=== PATIENT | female | born 1965 | race Caucasian/White ===

== ENCOUNTER 2018-01-22 18:22 | Inpatient (IN) | payer BC ==
[2018-01-22] MEDS ORDERED: IPRATROPIUM/ALBUTEROL 0.5-2.5 MG/3 ML AMPUL NEB ONE ×2 (18:44→19:23)
[2018-01-22] MEDS ORDERED: ALBUTEROL SULFATE 0.083% NEB 2.5 MG/3 ML AMPUL NEB ONE (18:44)
--- NOTE | 2018-01-22 18:44 | ER Document Report ---
ED Medical Screen (RME) - General TRAVEL OUTSIDE OF THE [place] IN LAST 30 DAYS: No - General Chief Complaint: Breathing Difficulty Stated Complaint: DIFFICULTY BREATHING Time Seen by Provider: 01/22/18 18:38 Notes: 52-year-old female with asthma and COPD who presents to the emergency department today with complaints of a 4-5 day history of shortness of breath. Patient was seen at [facility] for this last night and was given 4 breathing treatments and sent home with 60 mg of prednisone for 5 days. Patient states she was not given antibiotics and did not have a chest x- ray performed. Patient was also seen today at [facility] urgent care where she had a chest x-ray performed that the patient states showed "mucus buildup in her lungs". Patient has an inhaler at home which she states she has used with no relief. Patient states the cough is nonproductive. Patient states she has also had sneezing and subjective fevers. Patient denies ever having to be intubated in the past for her breathing. I have greeted and performed a rapid initial assessment of this patient. A comprehensive ED assessment and evaluation of the patient, analysis of test results, and completion of the medical decision making process will be conducted by additional ED providers. Review of systems: Constitutional: Fevers. EENT: No symptoms reported Cardiovascular: No symptoms reported Respiratory: Shortness of breath. Cough. Gastrointestinal: No symptoms reported Genitourinary: No symptoms reported Musculoskeletal: No symptoms reported Skin: No symptoms reported Hematologic/Lymphatic: No symptoms reported Neurological/Psychological: No symptoms reported Yes All other systems reviewed and negative PHYSICAL EXAM GENERAL: Alert. Appears short of breath, anxious, tremulous, and uncomfortable. HEAD: Normocephalic, atraumatic. EYES: Pupils equal, round, and reactive to light. Extraocular movements intact. ENT: Oral mucosa moist, tongue midline. NECK: Full range of motion. Supple. Trachea midline. LUNGS: Mild respiratory distress. Expiratory squeaking. Expiratory wheezing bilaterally. Speaking in 6-7 word sentences. EXTREMITIES: Moves all 4 extremities spontaneously. NEUROLOGICAL: Alert and oriented x3. Normal speech. PSYCH: Anxious SKIN: Warm, dry, normal turgor. No rashes or lesions noted. (GADIEL REN) - Related Data Allergies/Adverse Reactions: tetracycline [Tetracycline] Allergy (Severe, Verified 04/02/13 17:14) Anaphylaxis acetaminophen [From Darvocet-N 100] Adverse Reaction (Severe, Verified 04/02/13 17:14) Severe Vomiting propoxyphene napsylate [From Darvocet-N 100] Adverse Reaction (Severe, Verified 04/02/13 17:14) Severe Vomiting Past Medical History - Past Medical History Cardiac Medical History: Reports: Hx Hypertension Pulmonary Medical History: Reports: Hx Asthma, Hx Bronchitis, Hx COPD Denies: Hx Tuberculosis Renal/ Medical History: Denies: Hx Peritoneal Dialysis Psychiatric Medical History: Denies: Hx Depression Past Surgical History: Reports: Hx Cholecystectomy, Hx Hysterectomy - Immunizations Hx Diphtheria, Pertussis, Tetanus Vaccination: Yes - Vital signs Vitals: Temp Pulse Resp BP Pulse Ox 97.9 F 113 H 22 H 153/89 H 92 01/22/18 18:26 01/22/18 18:26 01/22/18 18:26 01/22/18 18:26 01/22/18 18:26 - Vital Signs Vital signs: Temp Pulse Resp BP Pulse Ox 97.9 F 113 H 22 H 153/89 H 92 01/22/18 18:26 01/22/18 18:26 01/22/18 18:26 01/22/18 18:26 01/22/18 18:26 Doctor's Discharge - Discharge Referrals: ANDREW CANALES MD [Primary Care Provider] - Follow up as needed Scribe Documentation - Scribe Written by Scribe:: Madeline Baires, 01/22/2018 [id number] acting as scribe for :: Terri
--- NOTE | 2018-01-22 18:52 | ER Document Report ---
ED General - General Chief Complaint: Breathing Difficulty Stated Complaint: DIFFICULTY BREATHING Time Seen by Provider: 01/22/18 18:38 Notes: Patient is a 52-year-old female with COPD that presents to the emergency department for chief complaint of shortness of breath and wheezing. Patient reports that she has been having increased shortness of breath and difficulty breathing, and dyspnea on exertion since this past Tuesday, with cough associated with it, occasional production of, yellow in color. She has been using her home breathing treatments, without much improvement of her symptoms so she decided come to the emergency department. She does not wear home oxygen. She denies having associated chest pain, fevers, chills, night sweats, nausea, vomiting or abdominal pain. Past Medical History: COPD Past Surgical History: Appendectomy, hysterectomy, cholecystectomy Social History: Admits to smoking cigarettes, denies alcohol or drug use Family History: Reviewed and noncontributory for presenting illness Allergies: Reviewed, see documented allergy list. REVIEW OF SYSTEMS: Other than noted above, the 12 point review of systems was reviewed with the patient and were negative, all pertinent findings are included in the HPI. PHYSICAL EXAMINATION: Vital signs reviewed, nursing noted reviewed. GENERAL: Patient appears older than stated age, in mild respiratory distress HEAD: Atraumatic, normocephalic. EYES: Eyes appear normal, extraocular movements intact, sclera anicteric, conjunctiva are normal. ENT: nares patent, oropharynx clear without exudates. Moist mucous membranes. NECK: Normal range of motion, supple without lymphadenopathy LUNGS: Mild increased work of breathing, and a diffuse expiratory wheezing and rhonchi noted throughout all lung guerrero HEART: Heart rate tachycardic, regular rhythm ABDOMEN: Soft, nontender, normoactive bowel sounds. No rebound, guarding, or rigidity. No masses appreciated. EXTREMITIES: Nontender, good range of motion, no pitting or edema. NEUROLOGICAL: No focal neurological deficits. Moves all extremities spontaneously Motor and sensory grossly intact on exam. PSYCH: Normal mood, normal affect. SKIN: Warm, Dry, normal turgor, no rashes or lesions noted on exposed skin TRAVEL OUTSIDE OF THE [place] IN LAST 30 DAYS: No - Related Data Allergies/Adverse Reactions: tetracycline [Tetracycline] Allergy (Severe, Verified 04/02/13 17:14) Anaphylaxis acetaminophen [From Darvocet-N 100] Adverse Reaction (Severe, Verified 04/02/13 17:14) Severe Vomiting propoxyphene napsylate [From Darvocet-N 100] Adverse Reaction (Severe, Verified 04/02/13 17:14) Severe Vomiting Past Medical History - Social History Smoking Status: Current Every Day Smoker Family History: Reviewed & Not Pertinent Patient has suicidal ideation: No Patient has homicidal ideation: No - Past Medical History Cardiac Medical History: Reports: Hx Hypertension Pulmonary Medical History: Reports: Hx Asthma, Hx Bronchitis, Hx COPD Denies: Hx Tuberculosis Renal/ Medical History: Denies: Hx Peritoneal Dialysis Psychiatric Medical History: Denies: Hx Depression Past Surgical History: Reports: Hx Cholecystectomy, Hx Hysterectomy - Immunizations Hx Diphtheria, Pertussis, Tetanus Vaccination: Yes Hx Pneumococcal Vaccination: 02/25/13 Physical Exam - Vital signs Vitals: Temp Pulse Resp BP Pulse Ox 97.9 F 113 H 22 H 153/89 H 92 01/22/18 18:26 01/22/18 18:26 01/22/18 18:26 01/22/18 18:26 01/22/18 18:26 Course - Re-evaluation Re-evalutation: Patient seen and examined vital signs reviewed. Laboratory data and imaging were ordered as appropriate for the patient's presenting symptoms and complaint, with consideration of any critical or life threatening conditions that may be associated with their obtained history and exam as noted above. Patient was treated with DuoNeb breathing treatments, and IV Solu-Medrol, she is also given a dose of IV magnesium Results were reviewed when available and demonstrated leukocytosis, however chest x-ray was negative for evidence of pneumonia, blood work was otherwise unremarkable The patient was re-evaluated and was improved, stated she was feeling much better from a breathing standpoint, however after the patient was removed from supplemental oxygen, her pulse ox dropped to 84% on room air, the patient is on home oxygen, I feel that the patient would benefit from inpatient treatment, for acute exacerbation of COPD. Evaluation was most consistent with acute COPD exacerbation Results were discussed with the patient at this point after careful consideration I feel that that patient should be admitted to the hospital. This was discussed with the patient that it is in the best interest for their care to be admitted for further evaluation and management. Patient agreed with this plan of care. A call was placed to the admitted physician, Dr. Jennings who graciously accepted the patient onto their service. *Note is created using voice recognition software and may contain spelling, syntax or grammatical errors. 01/22/18 22:28 - Vital Signs Vital signs: Temp Pulse Resp BP Pulse Ox 97.9 F 113 H 22 H 153/89 H 92 01/22/18 18:26 01/22/18 18:26 01/22/18 18:26 01/22/18 18:26 01/22/18 18:26 - Laboratory Result Diagrams: 01/22/18 19:22 01/22/18 19:22 Laboratory results interpreted by me: 01/22/18 01/22/18 01/22/18 19:22 19:22 19:22 WBC 16.7 H RDW 14.8 H Seg Neutrophils % 78.1 H Absolute Neutrophils 13.0 H AST 52 H Urine Blood MODERATE H - EKG Interpretation by Me Additional EKG results interpreted by me: EKG demonstrates sinus tachycardia with a ventricular rate of 110 bpm, normal axis, QTC 433 ms, poor R wave progression, no evidence of acute ischemia on this EKG, this is compared with prior EKG from 02/23/2013, without significant change. At that time the patient did have borderline right axis deviation, as she does on today's EKG. Critical Care Note - Critical Care Note Total time excluding time spent on procedures (mins): 40 Comments: Critical care time 40 minutes exclusive from separate billable procedures for a patient requiring complex medical decision making, and high potential for clinical deterioration. In a patient with acute on chronic respiratory failure , with hypoxia, requiring IV magnesium, and multiple breathing treatments, and admission to the hospital. Time spent obtaining history from patient or surrogate, discussions with consultants, development of treatment plan with patient or surrogate, evaluation of patient's response to treatment, examination of patient, ordering and performing treatments and interventions, ordering and review of laboratory studies, re-evaluation of patient's condition , ordering and review of radiographic studies and review of old charts Discharge - Discharge Clinical Impression: Acute exacerbation of chronic obstructive pulmonary disease (COPD), Hypoxia Condition: Stable Disposition: ADMITTED OBSERVATION Admitting Provider: Hospitalist - Dr. Jennings Unit Admitted: Telemetry
--- NOTE | 2018-01-22 19:11 | RADIOLOGY REPORT (SQ) ---
EXAM DESCRIPTION: CHEST 2 VIEWS COMPLETED DATE/TIME: 01/22/2018 7:04 pm REASON FOR STUDY: cough, COPD, wheeze, SOB COMPARISON: 04/03/2013. EXAM PARAMETERS: NUMBER OF VIEWS: two views TECHNIQUE: Digital Frontal and Lateral radiographic views of the chest acquired. RADIATION DOSE: NA LIMITATIONS: none FINDINGS: LUNGS AND PLEURA: No opacities, masses or pneumothorax. No pleural effusion. MEDIASTINUM AND HILAR STRUCTURES: No masses or contour abnormalities. HEART AND VASCULAR STRUCTURES: Heart normal size. No evidence for failure. BONES: No acute findings. Degenerative changes in the spine. HARDWARE: None in the chest. OTHER: No other significant finding. IMPRESSION: NO ACUTE RADIOGRAPHIC FINDING IN THE CHEST. TECHNICAL DOCUMENTATION: JOB ID: [id number] [employer]- All Rights Reserved Reading location - IP/workstation name: [email or web address]
[2018-01-22] MEDS ORDERED: METHYLPREDNISOLONE INJ 125 MG/2 ML SDV IV ONE (19:23)
[2018-01-22 19:37] LABS: ABSOLUTE BASOPHILS # (AUTO) 0.1 10^3/uL (0.0-0.2); ABSOLUTE EOSINOPHILS # (AUTO) 0.1 10^3/uL (0.0-0.6); ABSOLUTE LYMPHOCYTES (AUTO) 2.3 10^3/uL (0.5-4.7); ABSOLUTE MONOCYTES (AUTO) 1.2 10^3/uL (0.1-1.4); BASOPHILS % (AUTO) 0.5 % (0-2); EOSINOPHILS % (AUTO) 0.7 % (0-6); HEMATOCRIT 40.2 % (36.0-47.0); HEMOGLOBIN 13.3 g/dL (12.0-15.5); LYMPHOCYTES % (AUTO) 13.6 % (13-45); MEAN CORPUSCULAR HGB CONC 33.1 g/dL (32.0-36.0); MEAN CORPUSCULAR VOLUME 85 fl (80-97); MONOCYTES % (AUTO) 7.1 % (3-13); PLATELET COUNT 221 10^3/uL (150-450); RED BLOOD COUNT 4.76 10^6/uL (3.72-5.28); RED CELL DISTRIBUTION WIDTH 14.8 % (11.5-14.0); SEGMENTED NEUTROPHILS % (AUTO) 78.1 % (42-78); TOTAL CELLS COUNTED % (AUTO) 100 %; WHITE BLOOD COUNT 16.7 10^3/uL (4.0-10.5)
[2018-01-22 19:41] LABS: APPEARANCE,URINE CLEAR; BILIRUBIN,URINE NEGATIVE (NEGATIVE); COLOR,URINE STRAW; GLUCOSE, URINE NEGATIVE (NEGATIVE); KETONES,URINE NEGATIVE (NEGATIVE); LEUKOCYTE ESTERASE,URINE NEGATIVE (NEGATIVE); NITRITE,URINE NEGATIVE (NEGATIVE); PROTEIN,URINE NEGATIVE (NEGATIVE); URINE SPECIFIC GRAVITY 1.005; UROBILINOGEN,URINE NEGATIVE mg/dL (<2.0)
[2018-01-22 19:51] LABS: ALANINE AMINOTRANSFERASE 34 U/L (9-52); ALBUMIN 4.2 g/dL (3.5-5.0); ALKALINE PHOSPHATASE 69 U/L (38-126); ANION GAP 11 (5-19); ASPARTATE AMINO TRANSFERASE 52 U/L (14-36); BILIRUBIN,DIRECT 0.3 mg/dL (0.0-0.4); BILIRUBIN,TOTAL 0.7 mg/dL (0.2-1.3); BLOOD UREA NITROGEN 17 mg/dL (7-20); CALCIUM 9.3 mg/dL (8.4-10.2); CARBON DIOXIDE 29 mmol/L (22-30); CHLORIDE 104 mmol/L (98-107); GLUCOSE 97 mg/dL (75-110); POTASSIUM 4.2 mmol/L (3.6-5.0); TOTAL PROTEIN 7.2 g/dL (6.3-8.2)
[2018-01-22 20:03] LABS: NT PRO BNP 103 pg/mL (5-900)
[2018-01-22 20:10] LABS: TROPONIN I < 0.012 ng/mL
[2018-01-22] MEDS ORDERED: MAGNESIUM SULFATE/D5W 1 GM/100 ML RTUPB IV ONE (20:39)
[2018-01-22] MEDS ORDERED: GUAIFENESIN SYRP 200 MG/10 ML UDC PO PRN (22:05)
[2018-01-22] MEDS ORDERED: HYDRALAZINE HCL INJ/PF 20 MG/1 ML SDV IV PRN (22:05)
[2018-01-22] MEDS ORDERED: IPRATROPIUM/ALBUTEROL 0.5-2.5 MG/3 ML AMPUL NEB PRN (22:05)
[2018-01-22] MEDS ORDERED: CHLORPHENIRAMINE MALEATE 4 MG TABLET PO ONE (22:05)
--- NOTE | 2018-01-22 22:45 | EKG REPORT ---
SEVERITY:- ABNORMAL ECG - SINUS TACHYCARDIA BORDERLINE RIGHT AXIS DEVIATION BORDERLINE R WAVE PROGRESSION, ANTERIOR LEADS BORDERLINE T ABNORMALITIES, INFERIOR LEADS : Confirmed by: Claudia Oliva MD 22-Jan-2018 22:45:28
[2018-01-23] MEDS ORDERED: CHLORPHENIRAMINE MALEATE 4 MG TABLET PO ONE (00:45)
[2018-01-23] MEDS: LEVOFLOXACIN 750 MG/D5W RTU 750 MG/150 ML RTUPB IV SCH ×2 (00:56→21:06)
[2018-01-23] MEDS: IPRATROPIUM/ALBUTEROL 0.5-2.5 MG/3 ML AMPUL NEB SCH ×4 (02:16→21:36)
--- NOTE | 2018-01-23 03:23 | PDOC H&P ---
History of Present Illness Admission Date/PCP: 01/22/18 22:11 DIEUDONNE KELSEY III, MD Patient complains of: Shortness of breath History of Present Illness: KAELA SPIVEY is a 52 year old female with a past medical history of hypertension, COPD, chronic bronchitis and tobacco. She presents with 4 days of rhinorrhea, postnasal drip and shortness of breath and a productive cough of yellow sputum. She tried Sudafed, unimproved she sought evaluation at [facility] where she received symptomatic management and prednisone. Without improvement she reports to [facility] emergency room with persistent shortness of breath she is found to have leukocytosis, hypoxia of 88% on room air but an unremarkable chest x-ray. She received symptomatic management, empiric antibiotics and referred to the hospitalist for admission. She denies recent antibiotics Past Medical History Cardiac Medical History: Reports: Hypertension Pulmonary Medical History: Reports: Asthma, Bronchitis, Chronic Obstructive Pulmonary Disease (COPD), Pneumonia Denies: Tuberculosis Psychiatric Medical History: Reports: Depression Past Surgical History Past Surgical History: Reports: Cholecystectomy, Hysterectomy Social History Information Source: Patient, [facility] Records Smoking Status: Current Every Day Smoker Frequency of Alcohol Use: None Hx Recreational Drug Use: No Drugs: None Hx Prescription Drug Abuse: No - Advance Directive Resuscitation Status: Full Code Family History Family History: COPD Parental Family History Reviewed: Yes Children Family History Reviewed: Yes Sibling(s) Family History Reviewed.: Yes Medication/Allergy Home Medications: Albuterol Sulfate [Albuterol Sulfate 2.5mg/3 mL] 3 ml NEB TID 04/02/13 Albuterol Sulfate [Proair HFA] 2 puff IH Q4H PRN 04/02/13 Benzonatate [Tessalon Perles 100 mg Capsule] 100 mg PO QHS PRN 04/02/13 Fluticasone/Salmeterol [Advair 250-50 Diskus 28 dose] 1 puff IH TID 04/02/13 Prednisone 20 mg PO BID 04/02/13 Tiotropium Morris [Spiriva Handihaler 18 mcg/dose (30 Dose)] 1 inh IH DAILY 05/11 Zolpidem Tartrate [Ambien 5 mg Tablet] 5 mg PO QHS 04/02/13 Lisinopril [Prinivil 5 mg Tablet] 2.5 mg PO DAILY #0 tablet 04/04/13 Allergies/Adverse Reactions: tetracycline [Tetracycline] Allergy (Severe, Verified 04/02/13 17:14) Anaphylaxis acetaminophen [From Darvocet-N 100] Adverse Reaction (Severe, Verified 04/02/13 17:14) Severe Vomiting propoxyphene napsylate [From Darvocet-N 100] Adverse Reaction (Severe, Verified 04/02/13 17:14) Severe Vomiting Review of Systems Constitutional: ABSENT: chills, fever(s), headache(s), weight gain, weight loss Eyes: ABSENT: visual disturbances Ears: ABSENT: hearing changes Cardiovascular: ABSENT: chest pain, dyspnea on exertion, edema, orthropnea, palpitations Respiratory: ABSENT: cough, hemoptysis Gastrointestinal: ABSENT: abdominal pain, constipation, diarrhea, hematemesis, hematochezia, nausea, vomiting Genitourinary: ABSENT: dysuria, hematuria Musculoskeletal: ABSENT: joint swelling Integumentary: ABSENT: rash, wounds Neurological: ABSENT: abnormal gait, abnormal speech, confusion, dizziness, focal weakness, syncope Psychiatric: ABSENT: anxiety, depression, homidical ideation, suicidal ideation Endocrine: ABSENT: cold intolerance, heat intolerance, polydipsia, polyuria Hematologic/Lymphatic: ABSENT: easy bleeding, easy bruising Physical Exam Vital Signs: Temp Pulse Resp BP Pulse Ox 98.4 F 80 16 142/78 H 97 01/23/18 02:09 01/23/18 02:16 01/23/18 02:16 01/23/18 02:09 01/23/18 02:16 Intake & Output 01/21/18 01/22/18 01/23/18 11:59 11:59 11:59 Weight 91.9 kg General appearance: PRESENT: cooperative, mild distress. ABSENT: severe distress Head exam: PRESENT: atraumatic, normocephalic Eye exam: PRESENT: conjunctiva pink, EOMI, PERRLA. ABSENT: scleral icterus Ear exam: PRESENT: normal external ear exam Mouth exam: PRESENT: moist, tongue midline Neck exam: ABSENT: carotid bruit, JVD, lymphadenopathy, thyromegaly Respiratory exam: PRESENT: accessory muscle use, crackles, prolonged expiratory phas, symmetrical, tachypnea, wheezes. ABSENT: rales, rhonchi Cardiovascular exam: PRESENT: tachycardia. ABSENT: diastolic murmur, rubs, systolic murmur Pulses: PRESENT: normal dorsalis pedis pul Vascular exam: PRESENT: normal capillary refill Rectal exam: PRESENT: deferred Extremities exam: PRESENT: full ROM. ABSENT: calf tenderness, clubbing, pedal edema Neurological exam: PRESENT: alert, awake, oriented to person, oriented to place , oriented to time, oriented to situation, CN II-XII grossly intact. ABSENT: motor sensory deficit Psychiatric exam: PRESENT: appropriate affect, normal mood. ABSENT: homicidal ideation, suicidal ideation Skin exam: PRESENT: dry, intact, warm. ABSENT: cyanosis, rash Results Impressions: Chest X-Ray 01/22/18 18:44 IMPRESSION: NO ACUTE RADIOGRAPHIC FINDING IN THE CHEST. Assessment & Plan - Diagnosis (1) Acute exacerbation of chronic obstructive pulmonary disease (COPD) Is this a current diagnosis for this admission?: Yes Plan: Supplemental oxygen, albuterol and Atrovent, flutter valve (2) Acute bronchitis Is this a current diagnosis for this admission?: Yes Plan: Empiric antibiotics, prednisone, incentive spirometry. Follow-up CBC and ambulating oxygen saturations. - Time Time Spent: 30 to 50 Minutes
[2018-01-23] MEDS ORDERED: PREDNISONE 20 MG TABLET PO ONE (03:30)
[2018-01-23 04:43] LABS: ABSOLUTE LYMPHOCYTES (AUTO) 0.9 10^3/uL (0.5-4.7); ABSOLUTE MONOCYTES (AUTO) 0.2 10^3/uL (0.1-1.4); ABSOLUTE NEUT (AUTO) 12.1 10^3/uL (1.7-8.2); BASOPHILS % (AUTO) 0.2 % (0-2); HEMATOCRIT 39.3 % (36.0-47.0); HEMOGLOBIN 13.2 g/dL (12.0-15.5); LYMPHOCYTES % (AUTO) 6.6 % (13-45); MEAN CORPUSCULAR HEMOGLOBIN 28.2 pg (27.0-33.4); MEAN CORPUSCULAR HGB CONC 33.6 g/dL (32.0-36.0); MEAN CORPUSCULAR VOLUME 84 fl (80-97); MONOCYTES % (AUTO) 1.6 % (3-13); PLATELET COUNT 200 10^3/uL (150-450); RED BLOOD COUNT 4.69 10^6/uL (3.72-5.28); RED CELL DISTRIBUTION WIDTH 14.8 % (11.5-14.0); SEGMENTED NEUTROPHILS % (AUTO) 91.6 % (42-78); TOTAL CELLS COUNTED % (AUTO) 100 %; WHITE BLOOD COUNT 13.2 10^3/uL (4.0-10.5)
[2018-01-23 04:59] LABS: ANION GAP 12 (5-19); BLOOD UREA NITROGEN 18 mg/dL (7-20); CALCIUM 9.4 mg/dL (8.4-10.2); CARBON DIOXIDE 29 mmol/L (22-30); CHLORIDE 103 mmol/L (98-107); GLUCOSE 161 mg/dL (75-110)
[2018-01-23 05:11] LABS: POTASSIUM 5.2 mmol/L (3.6-5.0)
[2018-01-23] MEDS: HEPARIN SOD (PORCINE) 5,000 UNIT/ML 1 ML SYRINGE SUBCUT SCH ×3 (05:57→21:05)
[2018-01-23] MEDS: FLUTICASONE NASAL SPRAY 50 MCG/SPRY 120 SPRAY/16 GM NASL SCH ×2 (09:29→21:07)
[2018-01-23] MEDS ORDERED: NICOTINE 14 MG/24 HR PATCH.TD24 TD PRN (13:46)
--- NOTE | 2018-01-23 13:49 | PDOC PROGRESS REPORT ---
Subjective Progress Note for:: 01/23/18 Subjective:: He patient is a 52-year-old female with a past medical history of hypertension, COPD, chronic bronchitis, tobacco use with continuous use who was admitted on for acute respiratory failure with hypoxia secondary to a COPD exacerbation. Patient was seen on morning rounds. She is found sitting up in bed high Strange' s on supplemental oxygen at 2 L/min. She was noted to be slightly tachypneic with accessory muscle use; lung sounds were tight with central expiratory wheezing. The patient does admit that she feels better than yesterday, however , has now developed a productive cough. She denies fever, chills, chest pain, palpitations, orthopnea, abdominal pain, nausea vomiting and diarrhea. She has no new questions or concerns. No concerns per nursing. Reason For Visit: COPD EXACERBATION, ACUTE BRONCHITIS Physical Exam Vital Signs: Temp Pulse Resp BP Pulse Ox 97.8 F 100 16 141/75 H 92 01/23/18 09:06 01/23/18 09:06 01/23/18 09:06 01/23/18 09:06 01/23/18 09:06 Intake & Output 01/22/18 01/23/18 01/24/18 06:59 06:59 06:59 Intake Total 350 Balance 350 Weight 91.9 kg General appearance: PRESENT: no acute distress, mild distress, obese, well- developed, well-nourished Head exam: PRESENT: atraumatic, normocephalic Eye exam: PRESENT: conjunctiva pink, EOMI, PERRLA. ABSENT: scleral icterus Ear exam: PRESENT: normal external ear exam Mouth exam: PRESENT: moist, tongue midline Neck exam: ABSENT: carotid bruit, JVD, lymphadenopathy, thyromegaly Respiratory exam: PRESENT: accessory muscle use, decreased breath sounds, tachypnea, wheezes, other. ABSENT: rales, rhonchi Cardiovascular exam: PRESENT: RRR, +S1, +S2. ABSENT: diastolic murmur, rubs, systolic murmur Pulses: PRESENT: normal dorsalis pedis pul Vascular exam: PRESENT: normal capillary refill GI/Abdominal exam: PRESENT: normal bowel sounds, soft. ABSENT: distended, guarding, mass, organolmegaly, rebound, tenderness Rectal exam: PRESENT: deferred Extremities exam: PRESENT: full ROM. ABSENT: calf tenderness, clubbing, pedal edema Neurological exam: PRESENT: alert, awake, oriented to person, oriented to place , oriented to time, oriented to situation, CN II-XII grossly intact. ABSENT: motor sensory deficit Psychiatric exam: PRESENT: appropriate affect, normal mood. ABSENT: homicidal ideation, suicidal ideation Skin exam: PRESENT: dry, intact, warm. ABSENT: cyanosis, rash Results Laboratory Results: 01/23/18 04:00 01/23/18 04:00 01/23/18 01/23/18 04:00 04:00 WBC 13.2 H RBC 4.69 Hgb 13.2 Hct 39.3 MCV 84 MCH 28.2 MCHC 33.6 RDW 14.8 H Plt Count 200 Seg Neutrophils % 91.6 H Lymphocytes % 6.6 L Monocytes % 1.6 L Eosinophils % 0.0 Basophils % 0.2 Absolute Neutrophils 12.1 H Absolute Lymphocytes 0.9 Absolute Monocytes 0.2 Absolute Eosinophils 0.0 Absolute Basophils 0.0 Sodium 144.0 Potassium 5.2 H D Chloride 103 Carbon Dioxide 29 Anion Gap 12 BUN 18 Creatinine 0.68 Est GFR ( Amer) > 60 Est GFR (Non-Af Amer) > 60 Glucose 161 H Calcium 9.4 Impressions: Chest X-Ray 01/22/18 18:44 IMPRESSION: NO ACUTE RADIOGRAPHIC FINDING IN THE CHEST. Assessment & Plan - Diagnosis (1) Acute respiratory failure with hypoxia Is this a current diagnosis for this admission?: Yes Plan: Secondary to COPD exacerbation. The patient was admitted with respiratory distress noted to be hypoxic on room air. She is not home O2 dependent. The patient is admitted to the medical floor on continuous cardiac telemetry. She is provided supplemental oxygen as needed to maintain oxygen saturations. Scheduled and as needed nebulizer treatments. She has empirically been placed on IV Levaquin for coverage of her bronchitis as the patient has a history of chronic bronchitis and reports increased sputum production. Sputum culture is pending. Will adjust antibiotics as cultures result. IV Solu-Medrol. Mucinex twice daily. Incentive spirometer and flutter valve to bedside. (2) Acute exacerbation of chronic obstructive pulmonary disease (COPD) Is this a current diagnosis for this admission?: Yes Plan: As above. (3) Hypertension Is this a current diagnosis for this admission?: Yes Plan: Patient endorses a history of hypertension but is not on home medications. She is placed on a cardiac diet. IV hydralazine as needed for blood pressure control. (4) Tobacco use Is this a current diagnosis for this admission?: Yes Plan: Smoking cessation is encouraged; nicotine replacement therapies are provided. (5) Obesity Qualifiers: Obesity classification: adult class 2 (BMI 35 - 39.9) Is this a current diagnosis for this admission?: Yes Plan: The patient is noted to have a BMI of 37.1; certainly her obesity may be compromising her baseline respiratory status. She is placed on a cardiac diet. Dietary discretion is advised. - Time Time Spent with patient: 15-24 minutes - Inpatient Certification Based on my medical assessment, after consideration of the patient's comorbidities, presenting symptoms, or acuity I expect that the services needed warrant INPATIENT care.: Yes I certify that my determination is in accordance with my understanding of Medicare's requirements for reasonable and necessary INPATIENT services [42 CFR 412.3e].: Yes Medical Necessity: Need for Nebulizer Therapy and Monitoring of Response
[2018-01-23] MEDS: METHYLPREDNISOLONE INJ 40 MG/1 ML SDV IV SCH ×2 (14:57→21:06)
[2018-01-23] MEDS: IBUPROFEN 600 MG TABLET PO PRN (15:46)
[2018-01-23] MEDS ORDERED: PREDNISONE 20 MG TABLET PO SCH (18:00)
[2018-01-23] MEDS: GUAIFENESIN 600 MG TABLET.SA PO SCH (21:06)
[2018-01-23] MEDS: ZOLPIDEM TARTRATE 5 MG TABLET PO PRN (21:09)
[2018-01-24] MEDS: IPRATROPIUM/ALBUTEROL 0.5-2.5 MG/3 ML AMPUL NEB SCH ×4 (02:19→20:41)
[2018-01-24] MEDS ORDERED: LACTULOSE SYRUP 20 GM/30 ML UDCUP PO ONE (02:30)
[2018-01-24] MEDS: IBUPROFEN 600 MG TABLET PO PRN ×3 (04:27→22:57)
[2018-01-24] MEDS: HEPARIN SOD (PORCINE) 5,000 UNIT/ML 1 ML SYRINGE SUBCUT SCH ×3 (05:13→21:50)
[2018-01-24] MEDS: METHYLPREDNISOLONE INJ 40 MG/1 ML SDV IV SCH ×3 (05:13→21:50)
[2018-01-24 05:44] LABS: HEMATOCRIT 40.1 % (36.0-47.0); HEMOGLOBIN 13.7 g/dL (12.0-15.5); MEAN CORPUSCULAR HEMOGLOBIN 28.4 pg (27.0-33.4); MEAN CORPUSCULAR HGB CONC 34.1 g/dL (32.0-36.0); MEAN CORPUSCULAR VOLUME 83 fl (80-97); PLATELET COUNT 219 10^3/uL (150-450); RED BLOOD COUNT 4.81 10^6/uL (3.72-5.28); RED CELL DISTRIBUTION WIDTH 14.4 % (11.5-14.0)
[2018-01-24 06:14] LABS: ANION GAP 12 (5-19); BLOOD UREA NITROGEN 27 mg/dL (7-20); CALCIUM 9.4 mg/dL (8.4-10.2); CARBON DIOXIDE 30 mmol/L (22-30); CHLORIDE 101 mmol/L (98-107); GLUCOSE 138 mg/dL (75-110); POTASSIUM 5.1 mmol/L (3.6-5.0); SODIUM 142.8 mmol/L (137-145)
[2018-01-24] MEDS: GUAIFENESIN 600 MG TABLET.SA PO SCH ×2 (10:19→21:50)
[2018-01-24] MEDS: FLUTICASONE NASAL SPRAY 50 MCG/SPRY 120 SPRAY/16 GM NASL SCH ×2 (10:19→21:49)
--- NOTE | 2018-01-24 16:37 | PDOC PROGRESS REPORT ---
Subjective Progress Note for:: 01/24/18 Subjective:: No adverse events overnight. No new complaints. She says she is feeling better than when she was admitted. Should she still on oxygen but she is able to get up and walk to the bathroom without getting terribly short of breath. She says she still gets a little short winded with that short walk but it is not as bad as it was when she came in. She still has a pretty thick and tenacious cough. Reason For Visit: ACUTE RESPIRATORY FAILURE WITH HYPOXIA Physical Exam Vital Signs: Temp Pulse Resp BP Pulse Ox 99.0 F 85 17 137/69 H 95 01/24/18 12:00 01/24/18 14:24 01/24/18 14:24 01/24/18 12:00 01/24/18 14:24 Intake & Output 01/23/18 01/24/18 01/25/18 06:59 06:59 06:59 Intake Total 1160 250 Balance 1160 250 Weight 91.4 kg General appearance: PRESENT: no acute distress, cooperative, disheveled, morbidly obese Respiratory exam: PRESENT: prolonged expiratory phas, symmetrical, unlabored, wheezes. ABSENT: accessory muscle use, rales, rhonchi, tachypnea Cardiovascular exam: PRESENT: RRR, +S1, +S2. ABSENT: diastolic murmur, systolic murmur Vascular exam: PRESENT: normal capillary refill GI/Abdominal exam: PRESENT: normal bowel sounds, soft. ABSENT: distended, guarding, rebound, tenderness Extremities exam: ABSENT: clubbing, pedal edema Musculoskeletal exam: PRESENT: normal inspection. ABSENT: deformity Neurological exam: PRESENT: alert, awake, oriented to person, oriented to place , oriented to time Psychiatric exam: PRESENT: appropriate affect, normal mood Skin exam: PRESENT: dry, warm Results Laboratory Results: 01/24/18 04:07 01/24/18 04:07 01/24/18 01/24/18 04:07 04:07 WBC 14.0 H RBC 4.81 Hgb 13.7 Hct 40.1 MCV 83 MCH 28.4 MCHC 34.1 RDW 14.4 H Plt Count 219 Sodium 142.8 Potassium 5.1 H Chloride 101 Carbon Dioxide 30 Anion Gap 12 BUN 27 H Creatinine 0.62 Est GFR ( Amer) > 60 Est GFR (Non-Af Amer) > 60 Glucose 138 H Calcium 9.4 Impressions: Chest X-Ray 01/22/18 18:44 IMPRESSION: NO ACUTE RADIOGRAPHIC FINDING IN THE CHEST. Assessment & Plan - Diagnosis (1) Acute exacerbation of chronic obstructive pulmonary disease (COPD) Is this a current diagnosis for this admission?: Yes Plan: Continue steroids, bronchodilators, supplemental O2. We will continue to wean oxygen as tolerated. Aggressive pulmonary toilet. Continue to encourage ambulation. - Time Time Spent with patient: 25-34 minutes
[2018-01-24] MEDS: LEVOFLOXACIN 750 MG/D5W RTU 750 MG/150 ML RTUPB IV SCH (21:50)
[2018-01-24] MEDS: ZOLPIDEM TARTRATE 5 MG TABLET PO PRN (22:24)
[2018-01-25] MEDS: IPRATROPIUM/ALBUTEROL 0.5-2.5 MG/3 ML AMPUL NEB SCH ×3 (02:01→13:28)
[2018-01-25] MEDS: METHYLPREDNISOLONE INJ 40 MG/1 ML SDV IV SCH ×2 (05:36→14:16)
[2018-01-25] MEDS: HEPARIN SOD (PORCINE) 5,000 UNIT/ML 1 ML SYRINGE SUBCUT SCH ×2 (05:37→13:33)
[2018-01-25] MEDS: GUAIFENESIN 600 MG TABLET.SA PO SCH (10:10)
[2018-01-25] MEDS: FLUTICASONE NASAL SPRAY 50 MCG/SPRY 120 SPRAY/16 GM NASL SCH (10:11)
[2018-01-25 14:33] VITALS: BP 134/88
--- NOTE | 2018-01-27 08:42 | DISCHARGE SUMMARY E ---
Discharge Summary NAME: KAELA SPIVEY : 1965 AGE: 52Y ADMITTED: 01/23/2018 DISCHARGED: 01/25/2018 CODE STATUS: FULL CODE. PRIMARY CARE PROVIDER: Flynn Aguero M.D. DISCHARGE DIAGNOSES: Includes: 1. Chronic obstructive pulmonary disease exacerbation. 2. Acute on chronic hypoxemic respiratory failure secondary to #1, which is improved. DISCHARGE MEDICATIONS: Include: 1. ProAir HFA 2 puffs inhalation q. 4 hours p.r.n. 2. Flonase 2 sprays nasally q. 12 hours 1 bottle with 0 refills. 3. Mucinex 1200 mg p.o. q. 12 hours, 10 tablets with 0 refills. 4. Duoneb 1 neb q. 8 hours p.r.n. 5. Nebulizer 1 kit as directed. 6. Prednisone 60 mg taper. DIET: As tolerated. ACTIVITY: As tolerated. CONDITION: Good. DIAGNOSTICS: Lab values are as follows: Hematology obtained on 01/24/2018: WBCs are 14.0, hemoglobin is 13.7, hematocrit is 40.1, platelet count is 219,000. Chemistry obtained on 01/24/2018: Sodium is 142, potassium 5.1, chloride is 101, carbon dioxide 30, BUN 27, creatinine is 0.62, glucose 138, calcium is 9.4, bilirubin is 0.7. AST 52, ALT is 34, Alk phos 69. Troponin is 0.012. BNP is 103. Total protein 7.2, albumin is 4.2. Urinalysis obtained on 01/22/2018: Color straw, appearance clear. PH is 6.0, specific gravity is 1.005. Protein negative, glucose negative, ketones negative, occult blood moderate, nitrite negative, bilirubin negative, urobilinogen is negative, leukocyte esterase is negative. WBCs 0, RBCs 1, bacteria trace, epithelial squamous cells 1, mucus rare, ascorbic acid is negative. MICROBIOLOGY: Sputum specimen obtained on 01/23/2018 reveals no growth. Chest x-ray obtained on 01/22/2018 reveals no acute radiographic finding of the chest. EKG obtained on 01/22/2018 reveals sinus tachycardia. PHYSICAL EXAMINATION: GENERAL: On examination, the patient is a well-developed, well-nourished 52-year-old female who is awake, alert, and oriented to person, place, time, and situation. She is verbal, conversational, does not appear to be in any acute distress. VITAL SIGNS: Temperature is 98.7, pulse is 86, respirations of 16, blood pressure is 137/69, oxygen saturation is 95% on room air. SKIN: Warm, dry. No rash. She is not diaphoretic. HEENT: Pupils equal, round, reactive to light and accommodation. Conjunctiva is pink. There is no evidence of JVP. CARDIOVASCULAR SYSTEM: Heart is regular. There is no murmur or rub. CHEST: Clear, symmetrical, unlabored. ABDOMEN: Soft, nontender, nondistended. BACK: No CVA tenderness or sacral edema. EXTREMITIES: No clubbing, cyanosis, or edema. PSYCHIATRIC: Appropriate affect, pleasant mood. HISTORY OF PRESENT ILLNESS: The patient is a 52-year-old female with a past medical history of hypertension and COPD. The patient presented to the emergency department with a chief complaint of shortness of breath. The patient states she had 4 days of rhinorrhea, postnasal drip, and shortness of breath, as well as a productive cough, yellow sputum. The patient tried Sudafed without improvement. The patient sought evaluation at [facility] and received symptomatic management as well as prednisone. Because she had no improvement, she came to [facility] where she was found to have shortness of breath as well as leukocytosis, hypoxia with saturations less than 88% on room air, but an unremarkable chest x-ray. Given these findings, the patient was referred to the hospitalist for admission and management. HOSPITAL COURSE: The patient was admitted to continuous telemetry unit. The patient was placed on supplemental O2 and this was weaned and titrated accordingly. The patient was ambulated in the hallway and was able to maintain oxygen saturation of 95% after 48 hours of treatment. The patient was covered with nebulizer, steroids, Mucinex, as well as Flonase with significant improvement of her symptoms. The patient is absolutely eager for discharge and is agreeable to follow up with a primary care provider. DISCHARGE PLANNING: The patient is advised to follow up with a primary care provider within 1-2 weeks for hospital followup. Time spent on this discharge including assessment, plan, physical examination, patient education, and review of records is 25 minutes. DICTATING PHYSICIAN: MAVERICK LANGE NP [id number] PHY#: [id number] ID: [id number] JOB#: [id number] ACCT: [id number] cc:Lalit VAUGHAN NP > ALEXANDR
== END 2018-01-25 16:10 | disposition home or self-care (01) | DRG 189 ==
LOC: ER 18:22 → EH 22:11 → 5 01-23 02:02 → OBSVTOIN 01-23 13:35
PROVIDERS: ADMIT Internal Medicine; ATTEND Internal Medicine
DX: J96.21 Acute and chronic respiratory failure with hypoxia (principal); J44.1 Chronic obstructive pulmonary disease with (acute) exacerbation; J44.0 Chronic obstructive pulmonary disease with (acute) lower respiratory infection; J20.9 Acute bronchitis, unspecified; I10 Essential (primary) hypertension; F17.210 Nicotine dependence, cigarettes, uncomplicated; E66.9 Obesity, unspecified; Z68.37 Body mass index [BMI] 37.0-37.9, adult
CPT/HCPCS: 36415; 71046; 80048; 80053; 81001; 83880; 84484; 85025; 85027; 87070; 87205; 93005; 93010; 94640; 94667; 94668; 94799; 96365; 96366; 96375; 99291; G0378; J0360; J1644; J1956; J2920; J2930; J3475; J3490; J7512; J7620

== ENCOUNTER 2018-04-05 20:27 | Inpatient (IN) | payer BC ==
[2018-04-05] MEDS ORDERED: LORAZEPAM INJ 2 MG/1 ML VIAL IV ONE (20:32)
[2018-04-05] MEDS ORDERED: IPRATROPIUM/ALBUTEROL 0.5-2.5 MG/3 ML AMPUL NEB ONE ×3 (20:42→22:27)
[2018-04-05] MEDS ORDERED: LORAZEPAM INJ 2 MG/1 ML VIAL ONE (20:48)
[2018-04-05] MEDS ORDERED: MAGNESIUM SULFATE/D5W 1 GM/100 ML RTUPB IV ONE ×3 (20:49→21:19)
[2018-04-05] MEDS ORDERED: ASPIRIN 81 MG TABLET, CHEWABLE PO ONE (22:21)
--- NOTE | 2018-04-05 22:28 | ER Document Report ---
ED General - General Chief Complaint: Shortness Of Breath Stated Complaint: DIFFICULTY BREATHING Time Seen by Provider: 04/05/18 22:21 Mode of Arrival: Medic Information source: Patient, Emergency Med Personnel, [facility] Records Notes: 52-year-old female with COPD who continues to use tobacco presents with shortness of breath that started 3 days prior to arrival. EMS reports that upon their arrival patient was tachypnea, in significant distress with an O2 saturation of 77%. Patient reports that she was seen by her primary care physician Tuesday due to shortness of breath, increasing cough, sputum production and was placed on azithromycin. She states symptoms did not improve. She has been using her home breathing treatments without relief. Patient denies tobacco use today. Patient reports subjective fever, chills, sore throat. Prior to arrival patient received breathing treatment, Solu-Medrol. TRAVEL OUTSIDE OF THE [place] IN LAST 30 DAYS: No - Related Data Allergies/Adverse Reactions: tetracycline [Tetracycline] Allergy (Severe, Verified 04/02/13 17:14) Anaphylaxis acetaminophen [From Darvocet-N 100] Adverse Reaction (Severe, Verified 04/02/13 17:14) Severe Vomiting propoxyphene napsylate [From Darvocet-N 100] Adverse Reaction (Severe, Verified 04/02/13 17:14) Severe Vomiting Past Medical History - General Information source: Patient, Emergency Med Personnel, [facility] Records - Social History Smoking Status: Former Smoker Frequency of alcohol use: Occasional Drug Abuse: None Lives with: Spouse/Significant other Family History: COPD Patient has suicidal ideation: No Patient has homicidal ideation: No - Past Medical History Cardiac Medical History: Reports: Hx Hypertension Pulmonary Medical History: Reports: Hx Asthma, Hx Bronchitis, Hx COPD, Hx Pneumonia Denies: Hx Tuberculosis Renal/ Medical History: Denies: Hx Peritoneal Dialysis Psychiatric Medical History: Reports: Hx Depression Past Surgical History: Reports: Hx Cholecystectomy, Hx Hysterectomy - Immunizations Hx Diphtheria, Pertussis, Tetanus Vaccination: Yes Hx Pneumococcal Vaccination: 02/25/13 Review of Systems - Review of Systems Constitutional: Fever, Malaise, Recent illness EENT: Nose congestion, Throat pain Cardiovascular: Lightheaded. denies: Chest pain, Palpitations Respiratory: Cough, Short of breath, Sputum, Wheezing Gastrointestinal: denies: Abdominal pain, Diarrhea, Nausea, Vomiting Genitourinary: denies: Dysuria Female Genitourinary: No symptoms reported Musculoskeletal: denies: Back pain Skin: No symptoms reported Hematologic/Lymphatic: No symptoms reported Neurological/Psychological: denies: Anxiety, Headaches -: Yes All other systems reviewed and negative Physical Exam - Vital signs Vitals: Resp 24 H 04/05/18 20:30 - Notes Notes: PHYSICAL EXAMINATION: GENERAL: Ill-appearing, moderate distress HEAD: Atraumatic, normocephalic. EYES: Pupils equal round and reactive to light, extraocular movements intact, conjunctiva are normal. ENT: Nares patent, oropharynx clear without exudates. Moist mucous membranes. NECK: Normal range of motion, supple without lymphadenopathy LUNGS: Tachypnea, dyspneic, tripoding, accessory muscle use, increased work of breathing, hypoxia. Diffuse wheezing in all lung guerrero. HEART: Tachycardic, regular rhythm without murmurs ABDOMEN: Soft, nontender, nondistended abdomen. No guarding, no rebound. No masses appreciated. Female : deferred Musculoskeletal: Normal range of motion, no pitting or edema. No cyanosis. NEUROLOGICAL: Cranial nerves grossly intact. Normal speech, normal gait. Normal sensory, motor exams PSYCH: Normal mood, normal affect. SKIN: Warm, Dry, normal turgor, no rashes or lesions noted. Course - Re-evaluation Re-evalutation: 04/05/18 23:19 Laboratory 04/05/18 04/05/18 04/05/18 20:40 20:40 20:40 WBC 16.9 H RBC 4.89 Hgb 13.9 Hct 41.5 MCV 85 MCH 28.4 MCHC 33.5 RDW 15.7 H Plt Count 212 Seg Neutrophils % 84.0 H Lymphocytes % 8.1 L Monocytes % 6.2 Eosinophils % 1.3 Basophils % 0.4 Absolute Neutrophils 14.2 H Absolute Lymphocytes 1.4 Absolute Monocytes 1.1 Absolute Eosinophils 0.2 Absolute Basophils 0.1 Sodium 140.3 Potassium 4.3 Chloride 101 Carbon Dioxide 26 Anion Gap 13 BUN 16 Creatinine 0.60 Est GFR ( Amer) > 60 Est GFR (Non-Af Amer) > 60 Glucose 134 H Calcium 9.2 Total Bilirubin 0.8 Direct Bilirubin 0.4 Neonat Total Bilirubin Not Reportable Neonat Direct Bilirubin Not Reportable Neonat Indirect Bili Not Reportable AST 43 H ALT 34 Alkaline Phosphatase 76 Creatine Kinase 545 H CK-MB (CK-2) 4.98 H Troponin I < 0.012 Total Protein 7.8 Albumin 4.8 Chest X-Ray 04/05/18 22:21 IMPRESSION: No acute cardiopulmonary process copyright 2010 [employer]- All Rights Reserved Temp Pulse Resp BP Pulse Ox 98.3 F 18 112/79 98 04/05/18 20:40 04/05/18 23:01 04/05/18 23:01 04/05/18 23:01 04/05/18 23:20 Patient presents via EMS from home in respiratory distress with acute exacerbation of her COPD. She was found hypoxic, with increased work of breathing. Patient received breathing treatments, Solu-Medrol prior to arrival. Upon arrival patient is and significant respiratory distress with accessory muscle use, tachypnea and hypoxia. Patient is afebrile patient did receive multiple breathing treatments, magnesium and was placed immediately on BiPAP. Patient required Ativan to tolerate the BiPAP mask. On reevaluation patient is resting more comfortably. She states that she feels better and would like to trial being off of BiPAP. Patient was off of BiPAP for approximately 3 minutes when she had a significant desaturation down to 85%Patient was placed back on the BiPAP. CBC does show a leukocytosis of 17. CMP is unremarkable. Troponin within normal limits. Chest x-ray showed no acute cardiopulmonary process. Patient was accepted by the hospitalist for admission. Because of the patient's BiPAP requirement bed request for IMCU was placed. Patient is agreeable with admission. 04/06/18 01:41 - Vital Signs Vital signs: Temp Pulse Resp BP Pulse Ox 98.3 F 18 116/76 99 04/05/18 20:40 04/06/18 01:01 04/06/18 01:01 04/06/18 01:01 - Laboratory Result Diagrams: 04/05/18 20:40 04/05/18 20:40 Laboratory results interpreted by me: 04/05/18 04/05/18 04/05/18 20:35 20:40 20:40 WBC 16.9 H RDW 15.7 H Seg Neutrophils % 84.0 H Lymphocytes % 8.1 L Absolute Neutrophils 14.2 H Carbonic Acid 1.63 H ABG pH 7.31 L ABG pCO2 54.2 H ABG HCO3 26.9 H ABG Total CO2 28.5 H Glucose 134 H AST 43 H Creatine Kinase 545 H CK-MB (CK-2) 04/05/18 20:40 WBC RDW Seg Neutrophils % Lymphocytes % Absolute Neutrophils Carbonic Acid ABG pH ABG pCO2 ABG HCO3 ABG Total CO2 Glucose AST Creatine Kinase CK-MB (CK-2) 4.98 H - Diagnostic Test Radiology reviewed: Image reviewed, Reports reviewed Critical Care Note - Critical Care Note Total time excluding time spent on procedures (mins): 40 - Minutes of critical care time spent in direct contact evaluating and reevaluating the patient, treating symptoms, reviewing labs and studies and speaking with family and consultants excluding any procedures Discharge - Discharge Clinical Impression: Acute respiratory failure with hypoxia, Tobacco use, Hypoxia, Acute exacerbation of chronic obstructive pulmonary disease (COPD) Condition: Good Disposition: ADMITTED INPATIENT Admitting Provider: Hospitalist Unit Admitted: [facility]
[2018-04-05 22:46] LABS: ABSOLUTE BASOPHILS # (AUTO) 0.1 10^3/uL (0.0-0.2); ABSOLUTE EOSINOPHILS # (AUTO) 0.2 10^3/uL (0.0-0.6); ABSOLUTE LYMPHOCYTES (AUTO) 1.4 10^3/uL (0.5-4.7); ABSOLUTE MONOCYTES (AUTO) 1.1 10^3/uL (0.1-1.4); ABSOLUTE NEUT (AUTO) 14.2 10^3/uL (1.7-8.2); BASOPHILS % (AUTO) 0.4 % (0-2); EOSINOPHILS % (AUTO) 1.3 % (0-6); HEMATOCRIT 41.5 % (36.0-47.0); HEMOGLOBIN 13.9 g/dL (12.0-15.5); LYMPHOCYTES % (AUTO) 8.1 % (13-45); MEAN CORPUSCULAR HEMOGLOBIN 28.4 pg (27.0-33.4); MEAN CORPUSCULAR HGB CONC 33.5 g/dL (32.0-36.0); MEAN CORPUSCULAR VOLUME 85 fl (80-97); MONOCYTES % (AUTO) 6.2 % (3-13); PLATELET COUNT 212 10^3/uL (150-450); RED BLOOD COUNT 4.89 10^6/uL (3.72-5.28); RED CELL DISTRIBUTION WIDTH 15.7 % (11.5-14.0); TOTAL CELLS COUNTED % (AUTO) 100 %; WHITE BLOOD COUNT 16.9 10^3/uL (4.0-10.5)
--- NOTE | 2018-04-05 22:52 | RADIOLOGY REPORT (SQ) ---
EXAM DESCRIPTION: XR CHEST 1 VIEW COMPLETED DATE/TME: 04/05/2018 22:21 CLINICAL HISTORY: 52 years, Female, sob COMPARISON: 01/22/2018 chest NUMBER OF VIEWS: 1 TECHNIQUE: Portable chest LIMITATIONS: None. FINDINGS: The heart size is normal. Mild atheromatous change thoracic aorta. Minimal scarring left lung base. Lungs are otherwise clear. No pneumothorax IMPRESSION: No acute cardiopulmonary process copyright 2010 [employer]- All Rights Reserved
--- NOTE | 2018-04-05 22:53 | EKG REPORT ---
SEVERITY:- BORDERLINE ECG - SINUS TACHYCARDIA BORDERLINE INFERIOR Q WAVES BORDERLINE R WAVE PROGRESSION, ANTERIOR LEADS : Confirmed by: Adriana Silva 05-Apr-2018 22:52:16
[2018-04-05 23:02] LABS: ALANINE AMINOTRANSFERASE 34 U/L (9-52); ALBUMIN 4.8 g/dL (3.5-5.0); ALKALINE PHOSPHATASE 76 U/L (38-126); ANION GAP 13 (5-19); ASPARTATE AMINO TRANSFERASE 43 U/L (14-36); BILIRUBIN,DIRECT 0.4 mg/dL (0.0-0.4); BILIRUBIN,TOTAL 0.8 mg/dL (0.2-1.3); BLOOD UREA NITROGEN 16 mg/dL (7-20); CALCIUM 9.2 mg/dL (8.4-10.2); CARBON DIOXIDE 26 mmol/L (22-30); CHLORIDE 101 mmol/L (98-107); CREATINE KINASE 545 U/L (30-135); GLUCOSE 134 mg/dL (75-110); POTASSIUM 4.3 mmol/L (3.6-5.0); SODIUM 140.3 mmol/L (137-145); TOTAL PROTEIN 7.8 g/dL (6.3-8.2)
[2018-04-05 23:13] LABS: CREATINE KINASE MB 4.98 ng/mL (<4.55)
[2018-04-05 23:16] LABS: TROPONIN I < 0.012 ng/mL
[2018-04-05 23:24] LABS: ARTERIAL BLOOD BASE EXCESS -0.3 mmol/L; ARTERIAL BLOOD H2CO3 1.63 mmol/L (1.05-1.35); ARTERIAL BLOOD HCO3 26.9 mmol/L (20-24); ARTERIAL BLOOD O2 SATURATION 95.5 % (94-98); ARTERIAL BLOOD PCO2 54.2 mmHg (35-45); ARTERIAL BLOOD PH 7.31 (7.35-7.45); ARTERIAL BLOOD PO2 85.2 mmHg (80-100); ARTERIAL BLOOD TOTAL CO2 28.5 mmol/L (21-25)
[2018-04-05 23:25] LABS: ARTERIAL BLOOD FIO2 40%
[2018-04-05] MEDS ORDERED: LEVOFLOXACIN 750 MG TABLET PO ONE (23:49)
[2018-04-05] MEDS ORDERED: ONDANSETRON HCL INJ/PF 4 MG/2 ML SDV IV PRN (23:49)
[2018-04-05] MEDS ORDERED: MAG HYDROX/AL HYDROX/SIMETH SUSP 30 ML UDCUP PO PRN (23:49)
[2018-04-05] MEDS ORDERED: ONDANSETRON 4 MG TAB.RAPDIS PO PRN (23:49)
[2018-04-05] MEDS ORDERED: MAGNESIUM HYDROXIDE SUSP 30 ML UDCUP PO PRN (23:49)
[2018-04-05] MEDS ORDERED: NICOTINE 21 MG/24 HR PATCH.TD24 TD PRN (23:54)
[2018-04-05] MEDS ORDERED: NALBUPHINE HCL INJ 10 MG/1 ML AMPULE IV PRN (23:55)
[2018-04-06] MEDS ORDERED: ASPIRIN 81 MG TABLET, CHEWABLE ONE (00:24)
[2018-04-06] MEDS: IPRATROPIUM BROMIDE 0.02% NEB 0.5 MG/2.5 ML AMPUL NEB SCH ×4 (02:33→23:43)
[2018-04-06] MEDS: LEVALBUTEROL HCL NEB 1.25 MG/3 ML AMPUL NEB SCH ×4 (02:34→23:43)
[2018-04-06 03:04] LABS: HEMOGLOBIN 13.5 g/dL (12.0-15.5); MEAN CORPUSCULAR HEMOGLOBIN 27.9 pg (27.0-33.4); MEAN CORPUSCULAR HGB CONC 33.6 g/dL (32.0-36.0); MEAN CORPUSCULAR VOLUME 83 fl (80-97); PLATELET COUNT 203 10^3/uL (150-450); RED BLOOD COUNT 4.82 10^6/uL (3.72-5.28); RED CELL DISTRIBUTION WIDTH 15.5 % (11.5-14.0); WHITE BLOOD COUNT 14.4 10^3/uL (4.0-10.5)
[2018-04-06 03:19] LABS: ANION GAP 9 (5-19); BLOOD UREA NITROGEN 16 mg/dL (7-20); CALCIUM 9.1 mg/dL (8.4-10.2); CARBON DIOXIDE 28 mmol/L (22-30); CHLORIDE 103 mmol/L (98-107); CHOLESTEROL 209.92 mg/dL (0-200); CREATINE KINASE 442 U/L (30-135); GLUCOSE 156 mg/dL (75-110); POTASSIUM 4.9 mmol/L (3.6-5.0); SODIUM 140.1 mmol/L (137-145); TRIGLYCERIDES 95 mg/dL (<150)
[2018-04-06 03:24] LABS: ABSOLUTE LYMPHOCYTES# (MANUAL) 1.3 10^3/uL (0.5-4.7); ABSOLUTE MONOCYTES # (MANUAL) 0.1 10^3/uL (0.1-1.4); BASOPHILS % (MANUAL) 0 % (0-2); EOSINOPHILS % (MANUAL) 0 % (0-6); LYMPHOCYTES % (MANUAL) 7 % (13-45); MONOCYTES % (MANUAL) 1 % (3-13); SEGMENTED NEUTROPHILS % (MAN) 90 % (42-78); TOTAL CELLS COUNTED 100
[2018-04-06 03:25] LABS: ANISOCYTOSIS 1+; PLATELET COMMENT ADEQUATE; TOXIC GRANULATION SLIGHT
[2018-04-06 03:30] LABS: DIRECT LDL 134 mg/dL (<100)
[2018-04-06 03:31] LABS: NT PRO BNP 40 pg/mL (5-900)
[2018-04-06 03:33] LABS: TROPONIN I < 0.012 ng/mL
[2018-04-06 03:37] LABS: FREE T3 2.34 pg/mL (2.77-5.27); FREE T4 (FREE THYROXINE) 0.91 ng/dL (0.78-2.19)
--- NOTE | 2018-04-06 03:37 | PDOC H&P ---
History of Present Illness Admission Date/PCP: 04/05/18 23:57 DIEUDONNE KELSEY III, MD Patient complains of: Dyspnea History of Present Illness: KAELA SPIVEY is a 52 year old female who presented to the emergency room with a 3-day history of progressively worsening dyspnea. She had noted that 3 days she developed dyspnea associated with a productive cough for which she was treated with azithromycin by her primary care provider. Additionally she reported associated symptoms of dyspnea with exertion, fever, chills and sore throat. Her symptoms have not improved with treatment and indeed today her dyspnea became severe causing her to call EMS to bring her to the emergency room. She admits similar prior episodes on several occasions in the past and indicates that her symptoms are worsened by activity and trying to smoke cigarettes. She has not identified any ameliorating factors for her dyspnea as her home nebulizer treatments failed to bring her relief today. In the emergency room she was found to be hypoxic with an O2 saturation of 77% and significantly tachypneic causing her to be placed on BiPAP immediately. Additionally she was given nebulizer treatments and was also noted to have received Solu-Medrol intravenously in the ambulance. Due to her requirement for BiPAP she will be admitted hospital for further evaluation and treatment of her acute COPD exacerbation. Past Medical History Cardiac Medical History: Reports: Hypertension Denies: Atrial Fibrillation, Congestive Heart Failure, Coronary Artery Disease, DVT, Pulmonary Embolism Pulmonary Medical History: Reports: Asthma, Bronchitis, Chronic Obstructive Pulmonary Disease (COPD), Pneumonia, Respiratory Failure Denies: Tuberculosis EENT Medical History: Reports: None Neurological Medical History: Denies: Multiple Sclerosis, Seizures Endocrine Medical History: Reports: Obesity Denies: Diabetes Mellitus Type 1, Diabetes Mellitus Type 2, Hyperthyroidism, Hypothyroidism Renal/ Medical History: Denies: Chronic Kidney Disease, Nephrolithiasis Malignancy Medical History: Reports: None GI Medical History: Denies: Cirrhosis, Hepatitis Musculoskeltal Medical History: Denies: Arthritis, Gout Skin Medical History: Denies: Eczema, Psoriasis Psychiatric Medical History: Reports: Depression, Tobacco Dependency Denies: Alcohol Dependency, Substance Abuse Traumatic Medical History: Reports: None Hematology: Denies: Anemia, Bleeding Tendencies Infectious Medical History: Reports: None Past Surgical History Past Surgical History: Reports: Cholecystectomy, Hysterectomy Social History Information Source: Patient Lives with: Spouse/Significant other Smoking Status: Current Every Day Smoker Frequency of Alcohol Use: None Hx Recreational Drug Use: No Drugs: None Hx Prescription Drug Abuse: No - Advance Directive Resuscitation Status: Full Code Surrogate healthcare decision maker:: Minh Moody Family History Family History: CAD, COPD, DM, Hypertension, Malignancy Parental Family History Reviewed: Yes Children Family History Reviewed: No Sibling(s) Family History Reviewed.: Yes Medication/Allergy Home Medications: Albuterol Sulfate [Proair HFA] 2 puff IH Q4HP PRN 04/02/13 Ipratropium/Albuterol Sulfate [Duoneb 3 ml Ampul] 3 ml NEB [id number] PRN 01/23/18 Fluticasone Propionate [Flonase Nasal [place] 50 Mcg/[place] 16 gm] 2 spray NASL Q12 #1 bottle 01/25/18 Guaifenesin [Mucinex Sr 600 mg Tablet.sa] 600 mg PO Q12 #10 tablet.sa 01/25/18 Nebulizer [Nebulizer Machine] 1 each MC ASDIR PRN #1 kit 01/25/18 Prednisone [Deltasone 10 mg Tablet] 10 mg PO ASDIR PRN #21 tablet 01/25/18 Allergies/Adverse Reactions: tetracycline [Tetracycline] Allergy (Severe, Verified 04/02/13 17:14) Anaphylaxis acetaminophen [From Darvocet-N 100] Adverse Reaction (Severe, Verified 04/02/13 17:14) Severe Vomiting propoxyphene napsylate [From Darvocet-N 100] Adverse Reaction (Severe, Verified 04/02/13 17:14) Severe Vomiting Review of Systems Constitutional: PRESENT: as per HPI, chills, fever(s) Eyes: ABSENT: visual disturbances, other - Ocular pain Ears: ABSENT: hearing changes, other - Ear pain Nose, Mouth, and Throat: PRESENT: as per HPI, mouth pain, sore throat Cardiovascular: PRESENT: as per HPI, dyspnea on exertion. ABSENT: chest pain, edema, orthropnea, palpitations Respiratory: PRESENT: as per HPI, cough, dyspnea, sputum. ABSENT: hemoptysis Gastrointestinal: ABSENT: abdominal pain, constipation, diarrhea, nausea, vomiting Genitourinary: ABSENT: dysuria, hematuria Musculoskeletal: ABSENT: deformity, joint swelling Integumentary: ABSENT: pruritus, rash Neurological: ABSENT: confusion, convulsions, memory loss Psychiatric: ABSENT: anxiety, depression Endocrine: ABSENT: cold intolerance, heat intolerance Hematologic/Lymphatic: ABSENT: easy bleeding, easy bruising Physical Exam Vital Signs: Temp Pulse Resp BP Pulse Ox 98.3 F 18 112/79 98 04/05/18 20:40 04/05/18 23:01 04/05/18 23:01 04/05/18 23:01 Intake & Output 04/03/18 04/04/18 04/05/18 23:59 23:59 23:59 Weight 96.7 kg General appearance: PRESENT: cooperative, mild distress - Due to dyspnea and anxiety, obese, other - On BiPAP Head exam: PRESENT: atraumatic, normocephalic Eye exam: PRESENT: conjunctiva pink, EOMI. ABSENT: scleral icterus Ear exam: PRESENT: normal external ear exam. ABSENT: bleeding, drainage Mouth exam: PRESENT: dry mucosa, neck supple Neck exam: ABSENT: thyromegaly, tracheal deviation Respiratory exam: PRESENT: decreased breath sounds - Mildly decreased breath sounds throughout all [place] consistent with mild to moderate COPD, prolonged expiratory phas - Moderately prolonged expiratory phase in all [place], symmetrical, tachypnea, wheezes - Expiratory wheezes present in all [place] Cardiovascular exam: PRESENT: RRR, tachycardia. ABSENT: clicks, gallop, rubs Pulses: PRESENT: normal radial pulses, normal dorsalis pedis pul Vascular exam: PRESENT: normal capillary refill. ABSENT: pallor GI/Abdominal exam: PRESENT: normal bowel sounds, soft Rectal exam: PRESENT: deferred Extremities exam: ABSENT: joint swelling, pedal edema Musculoskeletal exam: ABSENT: deformity, dislocation Neurological exam: PRESENT: alert, oriented to person, oriented to place, orient ed to time, oriented to situation, CN II-XII grossly intact. ABSENT: motor sensory deficit Psychiatric exam: PRESENT: anxious, normal mood Skin exam: PRESENT: dry, intact, warm. ABSENT: jaundice, rash, urticaria Results Laboratory Results: 04/05/18 20:40 04/05/18 20:40 04/05/18 04/05/18 04/05/18 20:35 20:40 20:40 WBC 16.9 H RBC 4.89 Hgb 13.9 Hct 41.5 MCV 85 MCH 28.4 MCHC 33.5 RDW 15.7 H Plt Count 212 Seg Neutrophils % 84.0 H Lymphocytes % 8.1 L Monocytes % 6.2 Eosinophils % 1.3 Basophils % 0.4 Absolute Neutrophils 14.2 H Absolute Lymphocytes 1.4 Absolute Monocytes 1.1 Absolute Eosinophils 0.2 Absolute Basophils 0.1 Carbonic Acid 1.63 H HCO3/H2CO3 Ratio 16:1 ABG pH 7.31 L ABG pCO2 54.2 H ABG pO2 85.2 ABG HCO3 26.9 H ABG O2 Saturation 95.5 ABG Base Excess -0.3 FiO2 40% Sodium 140.3 Potassium 4.3 Chloride 101 Carbon Dioxide 26 Anion Gap 13 BUN 16 Creatinine 0.60 Est GFR ( Amer) > 60 Est GFR (Non-Af Amer) > 60 Glucose 134 H Calcium 9.2 Total Bilirubin 0.8 AST 43 H ALT 34 Alkaline Phosphatase 76 Total Protein 7.8 Albumin 4.8 04/05/18 04/05/18 20:40 20:40 Creatine Kinase 545 H CK-MB (CK-2) 4.98 H Troponin I < 0.012 Impressions: Chest X-Ray 04/05/18 22:21 IMPRESSION: No acute cardiopulmonary process copyright 2011 [employer]- All Rights Reserved Assessment & Plan - Diagnosis (1) Acute respiratory failure with hypoxia Is this a current diagnosis for this admission?: Yes Plan: Patient be treated with BiPAP and supplemental oxygen as needed to resolve her respiratory failure. She will be monitored clinically and blood gases will be obtained on as-needed basis. (2) Acute exacerbation of chronic obstructive pulmonary disease (COPD) Is this a current diagnosis for this admission?: Yes Plan: Patient be treated with an aggressive pulmonary toilet utilizing Xopenex, Atrov ent, Pulmicort and albuterol nebulizers. She will receive IV Solu-Medrol. She received respiratory support with oxygen supplementation and BiPAP as required. She will receive additional supportive care as necessary. She will also be started on empiric antibiotic therapy utilizing Levaquin 750 mg daily. (3) Tobacco use disorder, severe, dependence Is this a current diagnosis for this admission?: Yes Plan: Smoking cessation has been recommended and encouraged as well as counseled briefly. A nicotine patch will be made available to patient. (4) Obesity Qualifiers: Obesity type: unspecified obesity type Obesity classification: adult class 2 (BMI 35 - 39.9) Serious obesity comorbidity presence: with serious comorbidity Body mass index: BMI 39.0-39.9 Qualified Code(s): E66.01 - Morbid (severe) obesity due to excess calories; Z68.39 - Body mass index (BMI) 39.0-39.9, adult Is this a current diagnosis for this admission?: Yes Plan: Patient will be evaluated by nutrition services and counseling will be given to assist the patient in an appropriate diet for weight loss and lifestyle choices to enhance her overall well-being and overall health. (5) Acute anxiety Is this a current diagnosis for this admission?: Yes Plan: Patient will receive lorazepam 1 mg IV every 4 hours as needed for anxiety, especially anxiety due to to her discomfort wearing the BiPAP mask. - Time Time Spent: 30 to 50 Minutes Critical Time spent with patient: Less than 15 minutes Smoking Cessation Education: 3 to 10 minutes Medications reviewed and adjusted accordingly: Yes Anticipated discharge: Home - Inpatient Certification Based on my medical assessment, after consideration of the patient's comorbidities, presenting symptoms, or acuity I expect that the services needed warrant INPATIENT care.: Yes I certify that my determination is in accordance with my understanding of Medicare's requirements for reasonable and necessary INPATIENT services [42 CFR 412.3e].: Yes Medical Necessity: Significant Comorbidiites Make Outpatient Treatment Too Risky, Need Close Monitoring Due to Risk of Patient Decompensation, Need for Nebulizer Therapy and Monitoring of Response, Risk of Complication if Not Cared For in Hospital
[2018-04-06 03:51] LABS: THYROID STIMULATING HORMONE 1.41 uIU/mL (0.47-4.68)
[2018-04-06] MEDS: ALBUTEROL SULFATE 0.083% NEB 2.5 MG/3 ML AMPUL NEB PRN (05:57)
[2018-04-06] MEDS: METHYLPREDNISOLONE INJ 40 MG/1 ML SDV IV SCH ×3 (05:59→19:10)
[2018-04-06] MEDS: HEPARIN SOD (PORCINE) 5,000 UNIT/ML 1 ML SYRINGE SUBCUT SCH ×3 (05:59→22:24)
[2018-04-06] MEDS: BUDESONIDE NEB 0.5 MG/2 ML AMPUL NEB SCH ×2 (08:02→21:06)
[2018-04-06 09:37] LABS: CREATINE KINASE MB 4.24 ng/mL (<4.55)
[2018-04-06 09:40] LABS: TROPONIN I < 0.012 ng/mL
[2018-04-06] MEDS ORDERED: LEVOFLOXACIN 750 MG TABLET PO SCH (10:00)
[2018-04-06] MEDS: DOCUSATE SODIUM 100 MG CAPSULE PO SCH ×2 (11:16→19:11)
[2018-04-06] MEDS: FAMOTIDINE 20 MG TABLET PO SCH ×2 (11:16→22:20)
[2018-04-06] MEDS: ACETAMINOPHEN 325 MG TABLET PO PRN (11:16)
[2018-04-06] MEDS: GUAIFENESIN 600 MG TABLET.SA PO SCH ×2 (11:16→22:20)
[2018-04-06 16:09] LABS: CREATINE KINASE MB 4.46 ng/mL (<4.55)
[2018-04-06 16:15] LABS: TROPONIN I < 0.012 ng/mL
[2018-04-06] MEDS ORDERED: MAGNESIUM SULFATE/D5W 1 GM/100 ML RTUPB IV ONE (20:36)
[2018-04-06] MEDS: LEVOFLOXACIN 750 MG TABLET PO SCH (22:20)
[2018-04-07 04:31] LABS: ABSOLUTE BASOPHILS # (AUTO) 0.1 10^3/uL (0.0-0.2); ABSOLUTE LYMPHOCYTES (AUTO) 2.1 10^3/uL (0.5-4.7); ABSOLUTE MONOCYTES (AUTO) 1.5 10^3/uL (0.1-1.4); ABSOLUTE NEUT (AUTO) 14.8 10^3/uL (1.7-8.2); BASOPHILS % (AUTO) 0.3 % (0-2); EOSINOPHILS % (AUTO) 0.1 % (0-6); HEMATOCRIT 40.3 % (36.0-47.0); HEMOGLOBIN 13.5 g/dL (12.0-15.5); LYMPHOCYTES % (AUTO) 11.4 % (13-45); MEAN CORPUSCULAR HEMOGLOBIN 28.1 pg (27.0-33.4); MEAN CORPUSCULAR HGB CONC 33.5 g/dL (32.0-36.0); MEAN CORPUSCULAR VOLUME 84 fl (80-97); MONOCYTES % (AUTO) 8.2 % (3-13); PLATELET COUNT 230 10^3/uL (150-450); RED CELL DISTRIBUTION WIDTH 15.4 % (11.5-14.0); TOTAL CELLS COUNTED % (AUTO) 100 %; WHITE BLOOD COUNT 18.5 10^3/uL (4.0-10.5)
[2018-04-07 04:53] LABS: ANION GAP 10 (5-19); BLOOD UREA NITROGEN 28 mg/dL (7-20); CALCIUM 9.5 mg/dL (8.4-10.2); CARBON DIOXIDE 29 mmol/L (22-30); CHLORIDE 103 mmol/L (98-107); GLUCOSE 98 mg/dL (75-110); POTASSIUM 4.9 mmol/L (3.6-5.0); SODIUM 141.5 mmol/L (137-145)
[2018-04-07] MEDS: HEPARIN SOD (PORCINE) 5,000 UNIT/ML 1 ML SYRINGE SUBCUT SCH ×3 (06:09→21:25)
[2018-04-07] MEDS: LEVALBUTEROL HCL NEB 1.25 MG/3 ML AMPUL NEB SCH ×2 (08:53→15:55)
[2018-04-07] MEDS: BUDESONIDE NEB 0.5 MG/2 ML AMPUL NEB SCH ×2 (08:53→19:29)
[2018-04-07] MEDS: IPRATROPIUM BROMIDE 0.02% NEB 0.5 MG/2.5 ML AMPUL NEB SCH ×2 (08:53→15:55)
[2018-04-07] MEDS: GUAIFENESIN 600 MG TABLET.SA PO SCH ×2 (10:09→21:25)
[2018-04-07] MEDS: FAMOTIDINE 20 MG TABLET PO SCH ×2 (10:09→21:25)
[2018-04-07] MEDS: DOCUSATE SODIUM 100 MG CAPSULE PO SCH ×2 (10:12→20:05)
--- NOTE | 2018-04-07 11:59 | PDOC PROGRESS REPORT ---
Subjective Progress Note for:: 04/06/18 Subjective:: Patient still quite short of breath and wheezy. Reason For Visit: ACUTE EXACERBATION OF COPD Physical Exam Vital Signs: Temp Pulse Resp BP Pulse Ox 98.3 F 85 14 117/79 95 04/07/18 07:32 04/07/18 08:53 04/07/18 08:53 04/07/18 07:32 04/07/18 08:53 Intake & Output 04/06/18 04/07/18 04/08/18 06:59 06:59 06:59 Intake Total 680 Balance 680 Weight 96.7 kg 98.8 kg General appearance: PRESENT: mild distress Respiratory exam: PRESENT: wheezes - Bilateral. ABSENT: accessory muscle use, crackles, rales, retraction Cardiovascular exam: PRESENT: RRR, +S1, +S2 GI/Abdominal exam: PRESENT: normal bowel sounds, soft. ABSENT: tenderness Neurological exam: PRESENT: alert, awake, oriented to person, oriented to place, oriented to time, oriented to situation Psychiatric exam: PRESENT: appropriate affect. ABSENT: agitated, anxious Results Laboratory Results: 04/07/18 04:00 04/07/18 04:00 04/07/18 04/07/18 04:00 04:00 WBC 18.5 H RBC 4.80 Hgb 13.5 Hct 40.3 MCV 84 MCH 28.1 MCHC 33.5 RDW 15.4 H Plt Count 230 Seg Neutrophils % 80.0 H Lymphocytes % 11.4 L Monocytes % 8.2 Eosinophils % 0.1 Basophils % 0.3 Absolute Neutrophils 14.8 H Absolute Lymphocytes 2.1 Absolute Monocytes 1.5 H Absolute Eosinophils 0.0 Absolute Basophils 0.1 Sodium 141.5 Potassium 4.9 Chloride 103 Carbon Dioxide 29 Anion Gap 10 BUN 28 H Creatinine 0.69 Est GFR ( Amer) > 60 Est GFR (Non-Af Amer) > 60 Glucose 98 Calcium 9.5 Magnesium 2.1 04/05/18 04/05/18 04/06/18 20:40 20:40 02:52 Creatine Kinase 545 H 442 H CK-MB (CK-2) 4.98 H Troponin I < 0.012 NT-Pro-B Natriuret Pep 04/06/18 04/06/18 04/06/18 02:52 08:37 08:37 Creatine Kinase 387 H CK-MB (CK-2) 4.30 4.24 Troponin I < 0.012 < 0.012 NT-Pro-B Natriuret Pep 40 04/06/18 04/06/18 15:19 15:19 Creatine Kinase 360 H CK-MB (CK-2) 4.46 Troponin I < 0.012 NT-Pro-B Natriuret Pep Impressions: Chest X-Ray 04/05/18 22:21 IMPRESSION: No acute cardiopulmonary process copyright 2011 [employer]- All Rights Reserved Assessment & Plan - Diagnosis (1) Acute exacerbation of chronic obstructive pulmonary disease (COPD) Is this a current diagnosis for this admission?: Yes Plan: Continue BiPAP with attempts to wean. Continue levofloxacin as well as steroids and inhaler regimen. (2) Acute respiratory failure with hypoxia Is this a current diagnosis for this admission?: Yes Plan: In addition to the above I have ordered an incentive spirometer. (3) Tobacco abuse Is this a current diagnosis for this admission?: Yes Plan: Very strongly encourage cessation of smoking and explained the typical progressive decline of patients with COPD who smoke. - Time Time Spent with patient: 15-24 minutes Medications reviewed and adjusted accordingly: Yes Anticipated discharge: Home
--- NOTE | 2018-04-07 12:03 | PDOC PROGRESS REPORT ---
Subjective Progress Note for:: 04/07/18 Subjective:: Patient still quite short of breath and wheezy. Reason For Visit: ACUTE EXACERBATION OF COPD Physical Exam Vital Signs: Temp Pulse Resp BP Pulse Ox 98.3 F 85 14 117/79 95 04/07/18 07:32 04/07/18 08:53 04/07/18 08:53 04/07/18 07:32 04/07/18 08:53 Intake & Output 04/06/18 04/07/18 04/08/18 06:59 06:59 06:59 Intake Total 680 Balance 680 Weight 96.7 kg 98.8 kg General appearance: PRESENT: no acute distress, cooperative, other - Appears to be feeling better today Head exam: PRESENT: normocephalic Respiratory exam: PRESENT: prolonged expiratory phas, wheezes - Sporadic expiratory wheeze. ABSENT: crackles, rhonchi Cardiovascular exam: PRESENT: RRR, +S1, +S2 GI/Abdominal exam: PRESENT: normal bowel sounds, soft. ABSENT: tenderness Extremities exam: ABSENT: pedal edema Neurological exam: PRESENT: alert, awake, oriented to person, oriented to place, oriented to time, oriented to situation, CN II-XII grossly intact Psychiatric exam: PRESENT: appropriate affect, normal mood. ABSENT: agitated, anxious Results Laboratory Results: 04/07/18 04:00 04/07/18 04:00 04/07/18 04/07/18 04:00 04:00 WBC 18.5 H RBC 4.80 Hgb 13.5 Hct 40.3 MCV 84 MCH 28.1 MCHC 33.5 RDW 15.4 H Plt Count 230 Seg Neutrophils % 80.0 H Lymphocytes % 11.4 L Monocytes % 8.2 Eosinophils % 0.1 Basophils % 0.3 Absolute Neutrophils 14.8 H Absolute Lymphocytes 2.1 Absolute Monocytes 1.5 H Absolute Eosinophils 0.0 Absolute Basophils 0.1 Sodium 141.5 Potassium 4.9 Chloride 103 Carbon Dioxide 29 Anion Gap 10 BUN 28 H Creatinine 0.69 Est GFR ( Amer) > 60 Est GFR (Non-Af Amer) > 60 Glucose 98 Calcium 9.5 Magnesium 2.1 04/05/18 04/05/18 04/06/18 20:40 20:40 02:52 Creatine Kinase 545 H 442 H CK-MB (CK-2) 4.98 H Troponin I < 0.012 NT-Pro-B Natriuret Pep 04/06/18 04/06/18 04/06/18 02:52 08:37 08:37 Creatine Kinase 387 H CK-MB (CK-2) 4.30 4.24 Troponin I < 0.012 < 0.012 NT-Pro-B Natriuret Pep 40 04/06/18 04/06/18 15:19 15:19 Creatine Kinase 360 H CK-MB (CK-2) 4.46 Troponin I < 0.012 NT-Pro-B Natriuret Pep Impressions: Chest X-Ray 04/05/18 22:21 IMPRESSION: No acute cardiopulmonary process copyright 2010 [email or web address]- All Rights Reserved Assessment & Plan - Diagnosis (1) Acute exacerbation of chronic obstructive pulmonary disease (COPD) Is this a current diagnosis for this admission?: Yes Plan: Continue current medications during steroids, bronchodilators and anticholinergics. (2) Acute respiratory failure with hypoxia Is this a current diagnosis for this admission?: Yes Plan: Continue supplemental oxygen. Incentive spirometer ordered. I will recheck an x-ray tomorrow. (3) Tobacco abuse Is this a current diagnosis for this admission?: Yes Plan: Reviewed the need for tobacco cessation. She admitted that she feels fine and is not experiencing any withdrawal type symptoms. - Time Time Spent with patient: Less than 15 minutes Smoking Cessation Education: 3 to 10 minutes Medications reviewed and adjusted accordingly: Yes Anticipated discharge: Home
[2018-04-07] MEDS ORDERED: TRAZODONE HCL 50 MG TABLET PO PRN (12:09)
--- NOTE | 2018-04-07 12:43 | EKG REPORT ---
SEVERITY:- ABNORMAL ECG - SINUS TACHYCARDIA BORDERLINE RIGHT AXIS DEVIATION BORDERLINE INFERIOR Q WAVES ABNRM R PROG, CONSIDER ASMI OR LEAD PLACEMENT : Confirmed by: Adriana Silva 07-Apr-2018 12:43:17
[2018-04-07] MEDS: LORAZEPAM 0.5 MG TABLET PO SCH ×2 (14:40→21:24)
[2018-04-07] MEDS: METHYLPREDNISOLONE INJ 40 MG/1 ML SDV IV SCH ×2 (14:40→21:25)
[2018-04-07] MEDS: ALBUTEROL SULFATE 0.083% NEB 2.5 MG/3 ML AMPUL NEB PRN ×2 (14:45→19:33)
[2018-04-07] MEDS: LEVOFLOXACIN 750 MG TABLET PO SCH (21:24)
[2018-04-07] MEDS: ACETAMINOPHEN 325 MG TABLET PO PRN (21:47)
[2018-04-08] MEDS: IPRATROPIUM BROMIDE 0.02% NEB 0.5 MG/2.5 ML AMPUL NEB SCH ×4 (00:47→23:52)
[2018-04-08] MEDS: LEVALBUTEROL HCL NEB 1.25 MG/3 ML AMPUL NEB SCH ×4 (00:47→23:52)
[2018-04-08 04:55] LABS: ABSOLUTE BASOPHILS # (AUTO) 0.1 10^3/uL (0.0-0.2); ABSOLUTE LYMPHOCYTES (AUTO) 1.6 10^3/uL (0.5-4.7); ABSOLUTE MONOCYTES (AUTO) 0.3 10^3/uL (0.1-1.4); ABSOLUTE NEUT (AUTO) 13.8 10^3/uL (1.7-8.2); BASOPHILS % (AUTO) 0.7 % (0-2); HEMATOCRIT 41.3 % (36.0-47.0); HEMOGLOBIN 13.8 g/dL (12.0-15.5); MEAN CORPUSCULAR HGB CONC 33.5 g/dL (32.0-36.0); MEAN CORPUSCULAR VOLUME 84 fl (80-97); PLATELET COUNT 255 10^3/uL (150-450); RED BLOOD COUNT 4.93 10^6/uL (3.72-5.28); RED CELL DISTRIBUTION WIDTH 14.9 % (11.5-14.0); SEGMENTED NEUTROPHILS % (AUTO) 87.3 % (42-78); TOTAL CELLS COUNTED % (AUTO) 100 %; WHITE BLOOD COUNT 15.8 10^3/uL (4.0-10.5)
[2018-04-08 05:18] LABS: ANION GAP 12 (5-19); BLOOD UREA NITROGEN 30 mg/dL (7-20); CALCIUM 9.7 mg/dL (8.4-10.2); CARBON DIOXIDE 28 mmol/L (22-30); CHLORIDE 102 mmol/L (98-107); GLUCOSE 132 mg/dL (75-110); POTASSIUM 5.2 mmol/L (3.6-5.0); SODIUM 141.7 mmol/L (137-145)
[2018-04-08] MEDS: LORAZEPAM 0.5 MG TABLET PO SCH ×3 (07:04→22:42)
[2018-04-08] MEDS: METHYLPREDNISOLONE INJ 40 MG/1 ML SDV IV SCH ×3 (07:04→22:41)
[2018-04-08] MEDS: HEPARIN SOD (PORCINE) 5,000 UNIT/ML 1 ML SYRINGE SUBCUT SCH ×3 (07:05→22:42)
[2018-04-08] MEDS: BUDESONIDE NEB 0.5 MG/2 ML AMPUL NEB SCH ×2 (08:17→19:19)
--- NOTE | 2018-04-08 08:40 | RADIOLOGY REPORT (SQ) ---
EXAM DESCRIPTION: CHEST SINGLE VIEW COMPLETED DATE/TIME: 04/08/2018 7:54 am REASON FOR STUDY: COPD, respiratory failure COMPARISON: 04/05/2018. FINDINGS: Single-view chest AP portable upright. Improved lingular aeration. Hyperinflated lungs without new opacities or pneumothorax. No change in cardiomediastinal silhouette . TECHNICAL DOCUMENTATION: JOB ID: [id number] Reading location - IP/workstation name: [email or web address]
--- NOTE | 2018-04-08 09:46 | PDOC PROGRESS REPORT ---
Subjective Progress Note for:: 04/08/18 Subjective:: Resting in bed on nasal cannula. No acute complaints. Reason For Visit: ACUTE EXACERBATION OF COPD Physical Exam Vital Signs: Temp Pulse Resp BP Pulse Ox 97.5 F 93 21 H 126/73 H 98 04/08/18 08:00 04/08/18 08:00 04/08/18 08:00 04/08/18 08:00 04/08/18 08:00 Intake & Output 04/07/18 04/08/18 04/09/18 06:59 06:59 06:59 Intake Total 680 1507 Balance 680 1507 Weight 98.8 kg 98.5 kg General appearance: PRESENT: no acute distress, cooperative, well-developed, other - Slight facial flushing Respiratory exam: PRESENT: symmetrical, wheezes - Sporadic inspiratory and expiratory wheezes. ABSENT: rales, rhonchi Cardiovascular exam: PRESENT: RRR, +S1, +S2 GI/Abdominal exam: PRESENT: normal bowel sounds, soft. ABSENT: tenderness Neurological exam: PRESENT: alert, awake, oriented to person, oriented to place, oriented to time, oriented to situation, CN II-XII grossly intact Psychiatric exam: PRESENT: normal mood. ABSENT: agitated, anxious Results Laboratory Results: 04/08/18 04:03 04/08/18 04:03 04/08/18 04/08/18 04:03 04:03 WBC 15.8 H RBC 4.93 Hgb 13.8 Hct 41.3 MCV 84 MCH 28.0 MCHC 33.5 RDW 14.9 H Plt Count 255 Seg Neutrophils % 87.3 H Lymphocytes % 10.0 L Monocytes % 2.0 L Eosinophils % 0.0 Basophils % 0.7 Absolute Neutrophils 13.8 H Absolute Lymphocytes 1.6 Absolute Monocytes 0.3 Absolute Eosinophils 0.0 Absolute Basophils 0.1 Sodium 141.7 Potassium 5.2 H Chloride 102 Carbon Dioxide 28 Anion Gap 12 BUN 30 H Creatinine 0.72 Est GFR ( Amer) > 60 Est GFR (Non-Af Amer) > 60 Glucose 132 H Calcium 9.7 Magnesium 2.0 04/05/18 04/05/18 04/06/18 20:40 20:40 02:52 Creatine Kinase 545 H 442 H CK-MB (CK-2) 4.98 H Troponin I < 0.012 NT-Pro-B Natriuret Pep 04/06/18 04/06/18 04/06/18 02:52 08:37 08:37 Creatine Kinase 387 H CK-MB (CK-2) 4.30 4.24 Troponin I < 0.012 < 0.012 NT-Pro-B Natriuret Pep 40 04/06/18 04/06/18 15:19 15:19 Creatine Kinase 360 H CK-MB (CK-2) 4.46 Troponin I < 0.012 NT-Pro-B Natriuret Pep Assessment & Plan - Diagnosis (1) Acute exacerbation of chronic obstructive pulmonary disease (COPD) Is this a current diagnosis for this admission?: Yes Plan: Continue nebulizer treatments and steroid therapy. Slowly wean steroids. Oxygen supplementation in use. Will attempt to wean. (2) Acute respiratory failure with hypoxia Is this a current diagnosis for this admission?: Yes Plan: Using BiPAP support mostly at night and intermittently during the day. (3) Tobacco abuse Is this a current diagnosis for this admission?: Yes Plan: Continue tobacco cessation encouragement. Currently on nicotine patch. - Time Time Spent with patient: Less than 15 minutes Medications reviewed and adjusted accordingly: Yes
[2018-04-08] MEDS: FAMOTIDINE 20 MG TABLET PO SCH ×2 (10:10→22:41)
[2018-04-08] MEDS: DOCUSATE SODIUM 100 MG CAPSULE PO SCH ×2 (10:10→18:18)
[2018-04-08] MEDS: GUAIFENESIN 600 MG TABLET.SA PO SCH ×2 (10:10→22:41)
[2018-04-08] MEDS: ACETAMINOPHEN 325 MG TABLET PO PRN (15:38)
[2018-04-08] MEDS ORDERED: NALBUPHINE HCL INJ 10 MG/1 ML AMPULE IV PRN (17:30)
[2018-04-08] MEDS: ALBUTEROL SULFATE 0.083% NEB 2.5 MG/3 ML AMPUL NEB PRN (19:18)
[2018-04-08] MEDS: LEVOFLOXACIN 750 MG TABLET PO SCH (22:41)
[2018-04-09] MEDS: HEPARIN SOD (PORCINE) 5,000 UNIT/ML 1 ML SYRINGE SUBCUT SCH ×3 (06:34→22:54)
[2018-04-09] MEDS: METHYLPREDNISOLONE INJ 40 MG/1 ML SDV IV SCH ×3 (06:34→22:53)
[2018-04-09] MEDS: LORAZEPAM 0.5 MG TABLET PO SCH ×3 (06:35→22:53)
[2018-04-09] MEDS: IPRATROPIUM BROMIDE 0.02% NEB 0.5 MG/2.5 ML AMPUL NEB SCH ×3 (08:13→23:46)
[2018-04-09] MEDS: LEVALBUTEROL HCL NEB 1.25 MG/3 ML AMPUL NEB SCH ×3 (08:13→23:46)
[2018-04-09] MEDS: BUDESONIDE NEB 0.5 MG/2 ML AMPUL NEB SCH ×2 (08:13→19:26)
[2018-04-09] MEDS: FAMOTIDINE 20 MG TABLET PO SCH ×2 (09:23→22:54)
[2018-04-09] MEDS: GUAIFENESIN 600 MG TABLET.SA PO SCH ×2 (09:23→22:54)
[2018-04-09] MEDS: ACETAMINOPHEN 325 MG TABLET PO PRN ×2 (09:23→23:00)
[2018-04-09] MEDS: DOCUSATE SODIUM 100 MG CAPSULE PO SCH ×2 (09:23→17:42)
[2018-04-09] MEDS: ALBUTEROL SULFATE 0.083% NEB 2.5 MG/3 ML AMPUL NEB PRN (19:26)
[2018-04-09] MEDS: LEVOFLOXACIN 750 MG TABLET PO SCH (22:54)
[2018-04-10] MEDS: HEPARIN SOD (PORCINE) 5,000 UNIT/ML 1 ML SYRINGE SUBCUT SCH ×3 (06:21→23:20)
[2018-04-10] MEDS: LORAZEPAM 0.5 MG TABLET PO SCH ×3 (06:21→23:19)
[2018-04-10] MEDS: METHYLPREDNISOLONE INJ 40 MG/1 ML SDV IV SCH ×3 (06:21→23:20)
--- NOTE | 2018-04-10 06:29 | PDOC PROGRESS REPORT ---
Subjective Progress Note for:: 04/09/18 Subjective:: Patient is sitting comfortably in bed. She is back on BiPAP. She reports that she was off of BiPAP for several hours earlier today. Reason For Visit: ACUTE EXACERBATION OF COPD Physical Exam Vital Signs: Temp Pulse Resp BP Pulse Ox 98.0 F 83 14 131/85 H 100 04/09/18 15:06 04/09/18 19:27 04/09/18 19:27 04/09/18 15:06 04/09/18 19:27 Intake & Output 04/08/18 04/09/18 04/10/18 06:59 06:59 06:59 Intake Total 1507 3490 2540 Balance 1507 3490 2540 Weight 98.5 kg 90 kg General appearance: PRESENT: no acute distress, cooperative, well-developed, other - Currently on BiPAP Respiratory exam: PRESENT: symmetrical, wheezes - Still with intermittent expiratory wheeze. ABSENT: accessory muscle use, rales, rhonchi, stridor Cardiovascular exam: PRESENT: RRR, +S1, +S2 GI/Abdominal exam: PRESENT: normal bowel sounds, soft. ABSENT: tenderness Extremities exam: ABSENT: pedal edema Neurological exam: PRESENT: alert, awake, oriented to person, oriented to place, oriented to time, oriented to situation, CN II-XII grossly intact Psychiatric exam: PRESENT: normal mood. ABSENT: agitated, anxious Results Laboratory Results: 04/08/18 04:03 04/08/18 04:03 04/05/18 04/05/18 04/06/18 20:40 20:40 02:52 Creatine Kinase 545 H 442 H CK-MB (CK-2) 4.98 H Troponin I < 0.012 NT-Pro-B Natriuret Pep 04/06/18 04/06/18 04/06/18 02:52 08:37 08:37 Creatine Kinase 387 H CK-MB (CK-2) 4.30 4.24 Troponin I < 0.012 < 0.012 NT-Pro-B Natriuret Pep 40 04/06/18 04/06/18 15:19 15:19 Creatine Kinase 360 H CK-MB (CK-2) 4.46 Troponin I < 0.012 NT-Pro-B Natriuret Pep Assessment & Plan - Diagnosis (1) Acute exacerbation of chronic obstructive pulmonary disease (COPD) Is this a current diagnosis for this admission?: Yes Plan: Continue nebulizer treatments, steroids and BiPAP. There is a possibility that mold in the house from her cane Les[place] is adversely affecting the patient. I did discuss with the patient's the likelihood of having to replace wallboard and carpeting. This is something he was considering especially with the 's COPD decompensation. I also suggested that she wear a mask around the house when this work is going on. (2) Acute respiratory failure with hypoxia Is this a current diagnosis for this admission?: Yes Plan: As above. Continue oxygen supplementation as required. (3) Tobacco abuse Is this a current diagnosis for this admission?: Yes Plan: Nicotine patch as needed. Continue to encourage tobacco cessation. - Time Time Spent with patient: Less than 15 minutes Medications reviewed and adjusted accordingly: Yes Anticipated discharge: Home
[2018-04-10] MEDS: BUDESONIDE NEB 0.5 MG/2 ML AMPUL NEB SCH ×2 (07:49→19:37)
[2018-04-10] MEDS: LEVALBUTEROL HCL NEB 1.25 MG/3 ML AMPUL NEB SCH ×2 (07:49→15:43)
[2018-04-10] MEDS: IPRATROPIUM BROMIDE 0.02% NEB 0.5 MG/2.5 ML AMPUL NEB SCH ×2 (07:49→15:43)
[2018-04-10] MEDS: GUAIFENESIN 600 MG TABLET.SA PO SCH ×2 (09:15→23:20)
[2018-04-10] MEDS: FAMOTIDINE 20 MG TABLET PO SCH ×2 (09:15→23:20)
[2018-04-10] MEDS: DOCUSATE SODIUM 100 MG CAPSULE PO SCH ×2 (09:15→17:01)
[2018-04-10] MEDS: ALBUTEROL SULFATE 0.083% NEB 2.5 MG/3 ML AMPUL NEB PRN (19:38)
[2018-04-11] MEDS: LEVALBUTEROL HCL NEB 1.25 MG/3 ML AMPUL NEB SCH ×4 (00:09→23:36)
[2018-04-11] MEDS: IPRATROPIUM BROMIDE 0.02% NEB 0.5 MG/2.5 ML AMPUL NEB SCH ×4 (00:09→23:36)
[2018-04-11] MEDS: LORAZEPAM 0.5 MG TABLET PO SCH ×3 (06:53→21:12)
[2018-04-11] MEDS: HEPARIN SOD (PORCINE) 5,000 UNIT/ML 1 ML SYRINGE SUBCUT SCH ×3 (06:53→21:14)
[2018-04-11] MEDS: METHYLPREDNISOLONE INJ 40 MG/1 ML SDV IV SCH ×3 (06:53→21:17)
[2018-04-11] MEDS: BUDESONIDE NEB 0.5 MG/2 ML AMPUL NEB SCH ×2 (08:59→19:50)
[2018-04-11] MEDS: DOCUSATE SODIUM 100 MG CAPSULE PO SCH ×2 (09:54→17:35)
[2018-04-11] MEDS: FAMOTIDINE 20 MG TABLET PO SCH ×2 (09:54→21:16)
[2018-04-11] MEDS: GUAIFENESIN 600 MG TABLET.SA PO SCH ×2 (09:54→21:16)
--- NOTE | 2018-04-11 12:33 | PDOC PROGRESS REPORT ---
Subjective Progress Note for:: 04/10/18 Subjective:: Patient is back on BiPAP this afternoon. Reports that she was off of it since 5:00 this morning. Reason For Visit: ACUTE EXACERBATION OF COPD Physical Exam Vital Signs: Temp Pulse Resp BP Pulse Ox 97.4 F 77 18 151/85 H 97 04/10/18 15:04 04/10/18 15:44 04/10/18 15:44 04/10/18 15:04 04/10/18 15:44 Intake & Output 04/09/18 04/10/18 04/11/18 06:59 06:59 06:59 Intake Total 3490 2658 1759 Balance 3490 2658 1759 Weight 90 kg 92.1 kg General appearance: PRESENT: no acute distress, cooperative, other - She is on BiPAP but stated that she just went on it a short while ago when she began to take a nap. Head exam: PRESENT: normocephalic Respiratory exam: PRESENT: clear to auscultation linda - With very faint occasional wheeze, rhonchi, symmetrical, wheezes - Extremely faint and minimal with most of the lungs clear.. ABSENT: accessory muscle use, rales GI/Abdominal exam: PRESENT: normal bowel sounds, soft. ABSENT: tenderness Neurological exam: PRESENT: alert, awake, oriented to person, oriented to place, oriented to time, oriented to situation, CN II-XII grossly intact Psychiatric exam: PRESENT: normal mood. ABSENT: agitated, anxious Results Laboratory Results: 04/08/18 04:03 04/08/18 04:03 04/05/18 04/05/18 04/06/18 20:40 20:40 02:52 Creatine Kinase 545 H 442 H CK-MB (CK-2) 4.98 H Troponin I < 0.012 NT-Pro-B Natriuret Pep 04/06/18 04/06/18 04/06/18 02:52 08:37 08:37 Creatine Kinase 387 H CK-MB (CK-2) 4.30 4.24 Troponin I < 0.012 < 0.012 NT-Pro-B Natriuret Pep 40 04/06/18 04/06/18 15:19 15:19 Creatine Kinase 360 H CK-MB (CK-2) 4.46 Troponin I < 0.012 NT-Pro-B Natriuret Pep Assessment & Plan - Diagnosis (1) Acute exacerbation of chronic obstructive pulmonary disease (COPD) Is this a current diagnosis for this admission?: Yes Plan: The patient is slowly but consistently improving. Continue systemic steroids as well as inhaled steroids and ipratropium with Xopenex to limit tachycardia. The patient still requires oxygen supplementation and BiPAP. She was not on oxygen prior to this admission. (2) Acute respiratory failure with hypoxia Is this a current diagnosis for this admission?: Yes Plan: The patient was not on oxygen at home previously. She still requires BiPAP at night and for a portion of the day. Continue weaning. (3) Tobacco abuse Is this a current diagnosis for this admission?: Yes Plan: Continue stressing cessation from smoking. - Time Time Spent with patient: Less than 15 minutes Smoking Cessation Education: 3 to 10 minutes Medications reviewed and adjusted accordingly: Yes Anticipated discharge: Home
[2018-04-11] MEDS: ACETAMINOPHEN 325 MG TABLET PO PRN (15:07)
--- NOTE | 2018-04-11 18:46 | PDOC PROGRESS REPORT ---
Subjective Progress Note for:: 04/11/18 Subjective:: No adverse events overnight. She says she is feeling a little bit better today. She took the BiPAP off this morning and stayed off of it for approximately 6 hours before getting a little short of breath and going back on for a while. She said that is the longest time she spent off BiPAP since she has been in the hospital. Reason For Visit: ACUTE EXACERBATION OF COPD Physical Exam Vital Signs: Temp Pulse Resp BP Pulse Ox 97.9 F 91 16 153/87 H 96 04/11/18 15:36 04/11/18 15:53 04/11/18 15:53 04/11/18 15:36 04/11/18 15:53 Intake & Output 04/10/18 04/11/18 04/12/18 06:59 06:59 06:59 Intake Total 2658 1759 384 Balance 2658 1759 384 Weight 92.1 kg 91.5 kg General appearance: PRESENT: no acute distress, cooperative, morbidly obese Respiratory exam: PRESENT: decreased breath sounds, prolonged expiratory phas, rhonchi, symmetrical, unlabored, wheezes. ABSENT: accessory muscle use, rales, tachypnea Cardiovascular exam: PRESENT: RRR, +S1, +S2 Vascular exam: PRESENT: normal capillary refill GI/Abdominal exam: PRESENT: normal bowel sounds, soft. ABSENT: distended, guarding, rebound, tenderness Extremities exam: ABSENT: clubbing, pedal edema Musculoskeletal exam: PRESENT: normal inspection. ABSENT: deformity Neurological exam: PRESENT: alert, awake, oriented to person, oriented to place, oriented to time, oriented to situation Psychiatric exam: PRESENT: appropriate affect, normal mood Skin exam: PRESENT: dry, warm Results Laboratory Results: 04/08/18 04:03 04/08/18 04:03 04/05/18 04/05/18 04/06/18 20:40 20:40 02:52 Creatine Kinase 545 H 442 H CK-MB (CK-2) 4.98 H Troponin I < 0.012 NT-Pro-B Natriuret Pep 04/06/18 04/06/18 04/06/18 02:52 08:37 08:37 Creatine Kinase 387 H CK-MB (CK-2) 4.30 4.24 Troponin I < 0.012 < 0.012 NT-Pro-B Natriuret Pep 40 04/06/18 04/06/18 15:19 15:19 Creatine Kinase 360 H CK-MB (CK-2) 4.46 Troponin I < 0.012 NT-Pro-B Natriuret Pep Assessment & Plan - Diagnosis (1) Acute exacerbation of chronic obstructive pulmonary disease (COPD) Is this a current diagnosis for this admission?: Yes Plan: Continue with steroids, nebulizers, and ventilatory support. (2) Acute respiratory failure with hypoxia Is this a current diagnosis for this admission?: Yes Plan: Continue with BiPAP and supplemental O2 as needed. - Time Time Spent with patient: 25-34 minutes
[2018-04-11] MEDS: ALBUTEROL SULFATE 0.083% NEB 2.5 MG/3 ML AMPUL NEB PRN (19:50)
[2018-04-12] MEDS: LORAZEPAM 0.5 MG TABLET PO SCH ×3 (06:34→21:30)
[2018-04-12] MEDS: HEPARIN SOD (PORCINE) 5,000 UNIT/ML 1 ML SYRINGE SUBCUT SCH ×3 (06:34→21:31)
[2018-04-12] MEDS: METHYLPREDNISOLONE INJ 40 MG/1 ML SDV IV SCH ×2 (06:36→14:04)
[2018-04-12] MEDS: IPRATROPIUM BROMIDE 0.02% NEB 0.5 MG/2.5 ML AMPUL NEB SCH ×2 (07:35→16:20)
[2018-04-12] MEDS: BUDESONIDE NEB 0.5 MG/2 ML AMPUL NEB SCH ×2 (07:35→20:00)
[2018-04-12] MEDS: LEVALBUTEROL HCL NEB 1.25 MG/3 ML AMPUL NEB SCH ×2 (07:35→16:20)
[2018-04-12] MEDS: GUAIFENESIN 600 MG TABLET.SA PO SCH ×2 (09:44→21:31)
[2018-04-12] MEDS: FAMOTIDINE 20 MG TABLET PO SCH ×2 (09:44→21:31)
[2018-04-12] MEDS: DOCUSATE SODIUM 100 MG CAPSULE PO SCH ×2 (09:44→18:18)
[2018-04-12] MEDS: ACETAMINOPHEN 325 MG TABLET PO PRN ×2 (11:36→21:34)
--- NOTE | 2018-04-12 17:10 | PDOC PROGRESS REPORT ---
Subjective Progress Note for:: 04/12/18 Subjective:: No adverse events overnight. She was on the nasal cannula when I saw her today. She says she is able to get up and move around in the room a little bit on the nasal cannula before she has to sit down and catch her breath. She has a nonproductive cough, but says she feels like the congestion in her chest is breaking up. Reason For Visit: ACUTE EXACERBATION OF COPD Physical Exam Vital Signs: Temp Pulse Resp BP Pulse Ox 98.3 F 98 17 127/71 H 98 04/12/18 12:00 04/12/18 16:20 04/12/18 16:20 04/12/18 12:00 04/12/18 16:20 Intake & Output 04/11/18 04/12/18 04/13/18 06:59 06:59 06:59 Intake Total 1759 1228 708 Balance 1759 1228 708 Weight 91.5 kg 88.8 kg General appearance: PRESENT: no acute distress, cooperative, disheveled, morbidly obese Respiratory exam: PRESENT: decreased breath sounds, prolonged expiratory phas, rhonchi, unlabored, wheezes - [place] mostly in the left upper lobe and right lower lobe. ABSENT: accessory muscle use, crackles, symmetrical, tachypnea Cardiovascular exam: PRESENT: RRR, +S1, +S2 Vascular exam: PRESENT: normal capillary refill GI/Abdominal exam: PRESENT: normal bowel sounds, soft. ABSENT: distended, guarding, rebound, tenderness Extremities exam: ABSENT: clubbing, pedal edema Musculoskeletal exam: PRESENT: normal inspection. ABSENT: deformity Neurological exam: PRESENT: alert, awake, oriented to person, oriented to place, oriented to time, oriented to situation Psychiatric exam: PRESENT: appropriate affect, normal mood Skin exam: PRESENT: dry, warm Results Laboratory Results: 04/08/18 04:03 04/08/18 04:03 04/05/18 04/05/18 04/06/18 20:40 20:40 02:52 Creatine Kinase 545 H 442 H CK-MB (CK-2) 4.98 H Troponin I < 0.012 NT-Pro-B Natriuret Pep 04/06/18 04/06/18 04/06/18 02:52 08:37 08:37 Creatine Kinase 387 H CK-MB (CK-2) 4.30 4.24 Troponin I < 0.012 < 0.012 NT-Pro-B Natriuret Pep 40 04/06/18 04/06/18 15:19 15:19 Creatine Kinase 360 H CK-MB (CK-2) 4.46 Troponin I < 0.012 NT-Pro-B Natriuret Pep Assessment & Plan - Diagnosis (1) Acute exacerbation of chronic obstructive pulmonary disease (COPD) Is this a current diagnosis for this admission?: Yes Plan: She lost IV access and so we can switch her over to prednisone. Were going to continue all of her other treatments. (2) Acute respiratory failure with hypoxia Is this a current diagnosis for this admission?: Yes Plan: Continue with BiPAP and supplemental O2 as needed. - Time Time Spent with patient: 25-34 minutes
[2018-04-12] MEDS: PREDNISONE 20 MG TABLET PO SCH (18:18)
[2018-04-13] MEDS: IPRATROPIUM BROMIDE 0.02% NEB 0.5 MG/2.5 ML AMPUL NEB SCH ×3 (00:20→15:46)
[2018-04-13] MEDS: LEVALBUTEROL HCL NEB 1.25 MG/3 ML AMPUL NEB SCH ×3 (00:20→15:46)
[2018-04-13] MEDS: LORAZEPAM 0.5 MG TABLET PO SCH ×2 (06:05→13:55)
[2018-04-13] MEDS: HEPARIN SOD (PORCINE) 5,000 UNIT/ML 1 ML SYRINGE SUBCUT SCH ×2 (06:57→14:04)
[2018-04-13] MEDS: BUDESONIDE NEB 0.5 MG/2 ML AMPUL NEB SCH (07:29)
[2018-04-13] MEDS: ACETAMINOPHEN 325 MG TABLET PO PRN (09:11)
[2018-04-13] MEDS: GUAIFENESIN 600 MG TABLET.SA PO SCH (09:12)
[2018-04-13] MEDS: PREDNISONE 20 MG TABLET PO SCH (09:12)
[2018-04-13] MEDS: FAMOTIDINE 20 MG TABLET PO SCH (09:12)
[2018-04-13] MEDS: DOCUSATE SODIUM 100 MG CAPSULE PO SCH (09:13)
[2018-04-13] MEDS ORDERED: ONDANSETRON 4 MG TAB.RAPDIS PO PRN (10:00)
[2018-04-13] MEDS ORDERED: ONDANSETRON HCL INJ/PF 4 MG/2 ML SDV IV PRN (10:00)
[2018-04-13 13:41] VITALS: BP 132/74
--- NOTE | 2018-04-13 16:53 | PDOC DISCHARGE SUMMARY ---
General - Admit/Disc Date/PCP Admission Date/Primary Care Provider: 04/05/18 23:57 DIEUDONNE KELSEY III, MD Discharge Date: 04/13/18 - Discharge Diagnosis (1) Acute exacerbation of chronic obstructive pulmonary disease (COPD) Is this a current diagnosis for this admission?: Yes Summary: She required several days of IV steroids and BiPAP support for fairly severe exacerbation of COPD. She was gradually weaned off of BiPAP and was able to get on the oxygen per nasal cannula, and subsequently was able to get on room air. She will finish up her course of steroids at home. (2) Acute respiratory failure with hypoxia Is this a current diagnosis for this admission?: Yes Summary: As noted above, initially required BiPAP for several days, and then was able to be weaned off BiPAP to nasal cannula, and then off oxygen altogether. - Additional Information Resuscitation Status: Full Code Discharge Diet: Regular Discharge Activity: Activity As Tolerated, Slowly Increase Activity Prescriptions: Prednisone 10 mg PO DAILY #42 tab.ds.pk Home Medications: Albuterol Sulfate [Proair HFA Inhalation Aerosol 8.5 gm MDI] 2 puff IH Q4HP PRN 04/06/18 Benzonatate [Tessalon Perle 100 mg Capsule] 100 mg PO Q8HP PRN 04/06/18 Budesonide/Formoterol Fumarate [Symbicort HFA 160-4.5 mcg Inhaler 6 gm] 2 puff IH Q12 04/06/18 Fluticasone Propionate [Flonase Nasal Angie 50 Mcg/Angie 16 gm] 1 spray NASL BID 04/06/18 Ipratropium/Albuterol Sulfate [Duoneb 3 ml Ampul] 3 ml NEB Q8 04/06/18 Zolpidem Tartrate [Ambien] 10 mg PO HSP PRN 04/06/18 Prednisone 10 mg PO DAILY #42 tab.ds.pk 04/13/18 History of Present Illness History of Present Illness: KAELA SPIVEY is a 52 year old female who presented to the emergency room with a 3-day history of progressively worsening dyspnea. She had noted that 3 days she developed dyspnea associated with a productive cough for which she was treated with azithromycin by her primary care provider. Additionally she reported associated symptoms of dyspnea with exertion, fever, chills and sore throat. Her symptoms have not improved with treatment and indeed today her dyspnea became severe causing her to call EMS to bring her to the emergency room. She admits similar prior episodes on several occasions in the past and indicates that her symptoms are worsened by activity and trying to smoke cigare ttes. She has not identified any ameliorating factors for her dyspnea as her home nebulizer treatments failed to bring her relief today. In the emergency room she was found to be hypoxic with an O2 saturation of 77% and significantly tachypneic causing her to be placed on BiPAP immediately. Additionally she was given nebulizer treatments and was also noted to have received Solu-Medrol intravenously in the ambulance. Due to her requirement for BiPAP she will be admitted hospital for further evaluation and treatment of her acute COPD exacerbation. Hospital Course Hospital Course: She is responded very slowly to steroids and bronchodilators and required BiPAP support for several days. She was eventually able to be weaned off BiPAP and on the nasal cannula, and then was able to be weaned off of oxygen to room air. She ambulated and her oxygen saturations did not drop below 92% on room air. Because it took her so long to improve, I elected to use a little bit of a longer steroid taper on her outside the hospital rather than just a short burst of a few days. She is not seen a non clinical advisor, and we have made an appointment for her to follow-up with pulmonology as an outpatient. She will resume her usual medications for COPD after discharge. She also says she is going to stop smoking. Her labs and examination were reassuring she was discharged in good condition. Physical Exam Vital Signs: Temp Pulse Resp BP Pulse Ox 98.2 F 100 17 132/74 H 99 04/13/18 14:17 04/13/18 15:46 04/13/18 15:46 04/13/18 14:17 04/13/18 15:46 Intake & Output 04/12/18 04/13/18 04/14/18 06:59 06:59 06:59 Intake Total 1228 826 Balance 1228 826 Weight 88.8 kg 91.2 kg 91.2 kg General appearance: PRESENT: no acute distress, cooperative, disheveled, morbidly obese Respiratory exam: PRESENT: decreased breath sounds, prolonged expiratory phas, rhonchi, unlabored, wheezes - [place] mostly in the left upper lobe and right lower lobe. ABSENT: accessory muscle use, crackles, symmetrical, tachypnea Cardiovascular exam: PRESENT: RRR, +S1, +S2 Vascular exam: PRESENT: normal capillary refill GI/Abdominal exam: PRESENT: normal bowel sounds, soft. ABSENT: distended, guarding, rebound, tenderness Extremities exam: ABSENT: clubbing, pedal edema Musculoskeletal exam: PRESENT: normal inspection. ABSENT: deformity Neurological exam: PRESENT: alert, awake, oriented to person, oriented to place, oriented to time, oriented to situation Psychiatric exam: PRESENT: appropriate affect, normal mood Skin exam: PRESENT: dry, warm Results Laboratory Results: 04/08/18 04:03 04/08/18 04:03 04/05/18 04/05/18 04/06/18 20:40 20:40 02:52 Creatine Kinase 545 H 442 H CK-MB (CK-2) 4.98 H Troponin I < 0.012 NT-Pro-B Natriuret Pep 04/06/18 04/06/18 04/06/18 02:52 08:37 08:37 Creatine Kinase 387 H CK-MB (CK-2) 4.30 4.24 Troponin I < 0.012 < 0.012 NT-Pro-B Natriuret Pep 40 04/06/18 04/06/18 15:19 15:19 Creatine Kinase 360 H CK-MB (CK-2) 4.46 Troponin I < 0.012 NT-Pro-B Natriuret Pep Qualifiers - * PATIENT BEING DISCHARGED WITH ANY OF THE FOLLOWING DIAGNOSIS: No
== END 2018-04-13 16:46 | disposition home or self-care (01) | DRG 189 ==
LOC: ER 20:27 → EH 23:57 → 5 04-06 13:00
PROVIDERS: ADMIT Emergency Medicine; ATTEND Emergency Medicine
PROC: 3E0234Z Introduction of Serum, Toxoid and Vaccine into Muscle, Percutaneous Approach (ICD-10-PCS; principal; 2018-04-13)
DX: J96.01 Acute respiratory failure with hypoxia (principal); J44.1 Chronic obstructive pulmonary disease with (acute) exacerbation; I10 Essential (primary) hypertension; F32.9 Major depressive disorder, single episode, unspecified; F17.210 Nicotine dependence, cigarettes, uncomplicated; E66.01 Morbid (severe) obesity due to excess calories; Z68.39 Body mass index [BMI] 39.0-39.9, adult; Z23 Encounter for immunization
CPT/HCPCS: 36415; 36600; 71045; 80048; 80053; 80061; 82550; 82553; 82803; 83036; 83735; 83880; 84439; 84443; 84481; 84484; 85025; 90471; 90686; 93005; 93010; 94660; 94799; 96374; 99291; G0008; J1644; J2060; J2300; J2405; J2920; J3490; J7512; J7620

== ENCOUNTER → 2018-05-31 | Outpatient (CLI) | payer BC ==
--- NOTE | 2018-05-31 16:24 | RADIOLOGY REPORT (SQ) ---
EXAM DESCRIPTION: CT CHEST WITHOUT COMPLETED DATE/TIME: 05/31/2018 2:30 pm REASON FOR STUDY: COPD (J44.9), SOLITARY PULMONARY NODULE (R91.1) J44.9 CHRONIC OBSTRUCTIVE PULMONA RY DISEASE, UNSPECIFIED Z72.0 TOBACCO USE R91.1 SOLITARY PULMONARY NODULE COMPARISON: None. TECHNIQUE: CT scan performed of the chest without intravenous contrast. Images reviewed with lung, soft tissue and bone windows. Reconstructed coronal and sagittal MPR images reviewed. All images st ored on PACS. All CT scanners at this facility use dose modulation, iterative reconstruction, and/or weight based d osing when appropriate to reduce radiation dose to as low as reasonably achievable (ALARA). [facility]: Dose Right [facility]: CareDose [facility]: Dose Right [facility]: Teradose 4D [facility]: Smart [employer] RADIATION DOSE: CT Rad equipment meets quality standard of care and radiation dose reduction techniq ues were employed. CTDIvol: 19.4 mGy. DLP: 717 mGy-cm. mGy. LIMITATIONS: No technical limitations. FINDINGS: LUNGS AND PLEURA: 5 mm nodule left lower lobe image 93. 5 mm nodule left lower lobe abutt ing the major fissure image 59. 5 mm nodule in the middle lobe image 69. No effusions. HILAR AND MEDIASTINAL STRUCTURES: No identified masses or abnormal nodes. No obvious aneurysm. HEART AND VASCULAR STRUCTURES: No aneurysm. No pericardial effusion. UPPER ABDOMEN: No significant findings. Limited exam. THYROID AND OTHER SOFT TISSUES: No masses. No adenopathy. BONES: No significant finding. HARDWARE: None in the chest. OTHER: No other significant findings. IMPRESSION: 5 mm pulmonary nodules. COMMENT: Consider low-dose CT lung cancer screening followup in 6 to 12 months. TECHNICAL DOCUMENTATION: JOB ID: [id number] Quality ID # [id number]: Final reports with documentation of one or more dose reduction techniques (e.g., Au tomated exposure control, adjustment of the mA and/or kV according to patient size, use of iterative reconstruction technique) 2010 [employer]- All Rights Reserved Reading location - IP/workstation name: [email or web address]
== END ==
LOC: RAD 14:12
PROVIDERS: ATTEND Internal Medicine Critical Care Medicine
DX: J44.9 Chronic obstructive pulmonary disease, unspecified (principal); Z72.0 Tobacco use; R91.1 Solitary pulmonary nodule
CPT/HCPCS: 71250

== ENCOUNTER → 2018-10-06 | Outpatient (CLI) | payer OTHER ==
[2018-10-06 09:10] LABS: ABSOLUTE BASOPHILS # (AUTO) 0.1 10^3/uL (0.0-0.2); ABSOLUTE EOSINOPHILS # (AUTO) 0.3 10^3/uL (0.0-0.6); ABSOLUTE LYMPHOCYTES (AUTO) 2.5 10^3/uL (0.5-4.7); ABSOLUTE MONOCYTES (AUTO) 0.8 10^3/uL (0.1-1.4); ABSOLUTE NEUT (AUTO) 9.6 10^3/uL (1.7-8.2); BASOPHILS % (AUTO) 0.7 % (0-2); EOSINOPHILS % (AUTO) 2.1 % (0-6); HEMATOCRIT 40.8 % (36.0-47.0); HEMOGLOBIN 13.9 g/dL (12.0-15.5); LYMPHOCYTES % (AUTO) 18.5 % (13-45); MEAN CORPUSCULAR HEMOGLOBIN 26.9 pg (27.0-33.4); MEAN CORPUSCULAR HGB CONC 34.1 g/dL (32.0-36.0); MEAN CORPUSCULAR VOLUME 79 fl (80-97); MONOCYTES % (AUTO) 6.3 % (3-13); PLATELET COUNT 205 10^3/uL (150-450); RED BLOOD COUNT 5.16 10^6/uL (3.72-5.28); RED CELL DISTRIBUTION WIDTH 15.8 % (11.5-14.0); SEGMENTED NEUTROPHILS % (AUTO) 72.4 % (42-78); TOTAL CELLS COUNTED % (AUTO) 100 %; WHITE BLOOD COUNT 13.3 10^3/uL (4.0-10.5)
[2018-10-06 09:38] LABS: ALBUMIN 4.1 g/dL (3.5-5.0); ALKALINE PHOSPHATASE 72 U/L (38-126); ANION GAP 8 (5-19); ASPARTATE AMINO TRANSFERASE 35 U/L (14-36); BILIRUBIN,DIRECT 0.3 mg/dL (0.0-0.4); BILIRUBIN,TOTAL 0.6 mg/dL (0.2-1.3); BLOOD UREA NITROGEN 14 mg/dL (7-20); CALCIUM 9.2 mg/dL (8.4-10.2); CARBON DIOXIDE 30 mmol/L (22-30); CHLORIDE 102 mmol/L (98-107); CHOLESTEROL 200.78 mg/dL (0-200); GLUCOSE 151 mg/dL (75-110); POTASSIUM 4.5 mmol/L (3.6-5.0); TOTAL PROTEIN 7.3 g/dL (6.3-8.2); TRIGLYCERIDES 180 mg/dL (<150)
[2018-10-06 09:49] LABS: DIRECT LDL 169 mg/dL (<100)
== END ==
LOC: CCC 08:36
DX: Z00.00 Encounter for general adult medical examination without abnormal findings (principal)
CPT/HCPCS: 36415; 80053; 80061; 83036; 84443; 85025

== ENCOUNTER → 2018-10-13 | Outpatient (CLI) | payer OTHER ==
--- NOTE | 2018-10-13 13:57 | RADIOLOGY REPORT (SQ) ---
EXAM DESCRIPTION: CT CHEST WITHOUT COMPLETED DATE/TIME: 10/13/2018 9:03 am REASON FOR STUDY: (R91.1)SOLITARY PULMONARY NODULE R91.1 SOLITARY PULMONARY NODULE COMPARISON: 05/31/2018 TECHNIQUE: CT scan performed of the chest without intravenous contrast. Images reviewed with lung, soft tissue and bone windows. Reconstructed coronal and sagittal MPR images reviewed. All images st ored on PACS. All CT scanners at this facility use dose modulation, iterative reconstruction, and/or weight based d osing when appropriate to reduce radiation dose to as low as reasonably achievable (ALARA). [facility]: Dose Right [facility]: CareDose [facility]: Dose Right [facility]: Teradose 4D [facility]: [employer] RADIATION DOSE: CT Rad equipment meets quality standard of care and radiation dose reduction techniq ues were employed. CTDIvol: 17.8 mGy. DLP: 718 mGy-cm. mGy. LIMITATIONS: No technical limitations. FINDINGS: LUNGS AND PLEURA: Image 62, stable 6mm nodule left lower lobe. Image 72, stable 5 mm nodu le in the middle lobe. Image 95, stable 5 mm nodule left lower lobe. No new nodules. No effusions. HILAR AND MEDIASTINAL STRUCTURES: No identified masses or abnormal nodes. No obvious aneurysm. HEART AND VASCULAR STRUCTURES: No aneurysm. No pericardial effusion. UPPER ABDOMEN: No significant findings. Limited exam. THYROID AND OTHER SOFT TISSUES: No masses. No adenopathy. BONES: No significant finding. HARDWARE: None in the chest. OTHER: No other significant findings. IMPRESSION: Stable pulmonary nodules. TECHNICAL DOCUMENTATION: JOB ID: [id number] Quality ID # [id number]: Final reports with documentation of one or more dose reduction techniques (e.g., Au tomated exposure control, adjustment of the mA and/or kV according to patient size, use of iterative reconstruction technique) 2010 [employer]- All Rights Reserved Reading location - IP/workstation name: [email or web address]
== END ==
LOC: RAD 08:41
PROVIDERS: ATTEND Internal Medicine Critical Care Medicine
DX: R91.1 Solitary pulmonary nodule (principal); Z80.1 Family history of malignant neoplasm of trachea, bronchus and lung; Z72.0 Tobacco use
CPT/HCPCS: 71250

== ENCOUNTER → 2018-12-06 | Outpatient (CLI) | payer OTHER ==
[~2018-12-06] MED LIST: ALBUTEROL SULFATE 0.083% NEB 2.5 MG/3 ML AMPUL NEB ONE
--- NOTE | 2018-12-08 11:35 | Pulmonary Function Test ---
Pulmonary Function Test Date of Procedure:: 12/06/18 INDICATION:: Dyspnea Referring Provider: Dr.D. Davies Food Operations Manager: Nilsa Roberts WATERPROOF COATING MACHINE TENDER, MEDIA PRODUCER - Report Spirometry: Spirometry: pre-FVC: 2.13 L 75% post-FVC: 2.50 L 88% pre-FEV:1 1.17 L 50% post-FEV1: 1.37 L 56% pre-FEV1/FVC %: 55 post-FEV1/FVC%: 55 predicted: 84 [id number]%: 0.40 L 15% [id number]%:[0.48 L 19%] Diffusion Capactity: DLCO: 13.5 56% DLCO/VA: 3.67 91% Impression: Moderate obstructive ventilatory defect. Insignificant response to bronchodilator therapy. Moderate decrease in diffusion capacity.
== END ==
LOC: RT 11:56
DX: J44.9 Chronic obstructive pulmonary disease, unspecified (principal); R06.00 Dyspnea, unspecified
CPT/HCPCS: 94060; 94729

== ENCOUNTER → 2019-04-18 | Outpatient (CLI) | payer OTHER ==
--- NOTE | 2019-04-18 13:10 | RADIOLOGY REPORT (SQ) ---
EXAM DESCRIPTION: CT CHEST WITHOUT COMPLETED DATE/TIME: 04/18/2019 12:45 pm REASON FOR STUDY: PULMONARY NODULE (R91.1) R91.1 SOLITARY PULMONARY NODULE COMPARISON: 10/13/2018, 05/31/2018 TECHNIQUE: CT scan performed of the chest without intravenous contrast. Images reviewed with lung, soft tissue and bone windows. Reconstructed coronal and sagittal MPR images reviewed. All images st ored on PACS. All CT scanners at this facility use dose modulation, iterative reconstruction, and/or weight based d osing when appropriate to reduce radiation dose to as low as reasonably achievable (ALARA). [facility]: Dose Right [facility]: CareDose [facility]: Dose Right [facility]: Teradose 4D [facility]: [employer] RADIATION DOSE: CT Rad equipment meets quality standard of care and radiation dose reduction techniq ues were employed. CTDIvol: 17.2 mGy. DLP: 671 mGy-cm. mGy. LIMITATIONS: No technical limitations. FINDINGS: LUNGS AND PLEURA: There are stable bilateral pulmonary nodules. The largest is in the rig ht upper lobe an measures 6.5 mm. This is best demonstrated on series 4, image 63. There is an appr oximately 6.5 mm nodule in the left base also unchanged. This is best demonstrated on series 4 image 86. There is a 4.5 mm nodule on series 4, image 80 stable in appearance. There is a 3.8 mm nodule best demonstrated on series 4, image 40 also unchanged. HILAR AND MEDIASTINAL STRUCTURES: Stable in appearance. HEART AND VASCULAR STRUCTURES: No aneurysm. No pericardial effusion. UPPER ABDOMEN: No significant findings. Limited exam. THYROID AND OTHER SOFT TISSUES: No masses. No adenopathy. BONES: No significant finding. HARDWARE: None in the chest. OTHER: No other significant findings. IMPRESSION: Stable bilateral pulmonary nodules as described. The largest 2 are measured approximate ly 6.5 mm. Please see below for recommended follow-up. COMMENT: [place] CRITERIA FOR FOLLOW-UP OF PULMONARY NODULES Incidentally detected new nodules in persons 35 or older. HIGH RISK: History of smoking or other known risk factors. 6-8 mm single solid nodule: LOW RISK: CT 6-12 mo; then consider CT 18-24 mo. HIGH RISK: CT 6-12 mo; t hen CT 18-24 mo. TECHNICAL DOCUMENTATION: JOB ID: [id number] Quality ID # 436: Final reports with documentation of one or more dose reduction techniques (e.g., Au tomated exposure control, adjustment of the mA and/or kV according to patient size, use of iterative reconstruction technique) 2010 [employer]- All Rights Reserved Reading location - IP/workstation name: [email or web address]
== END ==
LOC: RAD 12:21
PROVIDERS: ATTEND Family Medicine
DX: R91.1 Solitary pulmonary nodule (principal)
CPT/HCPCS: 71250

== ENCOUNTER → 2019-04-24 | Outpatient (CLI) | payer OTHER ==
[2019-04-24 10:13] LABS: ABSOLUTE BASOPHILS # (AUTO) 0.1 10^3/uL (0.0-0.2); ABSOLUTE EOSINOPHILS # (AUTO) 0.3 10^3/uL (0.0-0.6); ABSOLUTE LYMPHOCYTES (AUTO) 2.1 10^3/uL (0.5-4.7); ABSOLUTE MONOCYTES (AUTO) 0.6 10^3/uL (0.1-1.4); ABSOLUTE NEUT (AUTO) 7.6 10^3/uL (1.7-8.2); BASOPHILS % (AUTO) 1.1 % (0-2); EOSINOPHILS % (AUTO) 2.9 % (0-6); HEMATOCRIT 42.9 % (36.0-47.0); HEMOGLOBIN 15.1 g/dL (12.0-15.5); LYMPHOCYTES % (AUTO) 19.6 % (13-45); MEAN CORPUSCULAR HEMOGLOBIN 29.2 pg (27.0-33.4); MEAN CORPUSCULAR HGB CONC 35.2 g/dL (32.0-36.0); MEAN CORPUSCULAR VOLUME 83 fl (80-97); MONOCYTES % (AUTO) 5.7 % (3-13); PLATELET COUNT 218 10^3/uL (150-450); RED BLOOD COUNT 5.16 10^6/uL (3.72-5.28); RED CELL DISTRIBUTION WIDTH 14.2 % (11.5-14.0); SEGMENTED NEUTROPHILS % (AUTO) 70.7 % (42-78); TOTAL CELLS COUNTED % (AUTO) 100 %; WHITE BLOOD COUNT 10.7 10^3/uL (4.0-10.5)
[2019-04-24 11:04] LABS: ALBUMIN 4.3 g/dL (3.5-5.0); ALKALINE PHOSPHATASE 72 U/L (38-126); ANION GAP 8 (5-19); ASPARTATE AMINO TRANSFERASE 47 U/L (14-36); BILIRUBIN,DIRECT 0.1 mg/dL (0.0-0.4); BILIRUBIN,TOTAL 0.7 mg/dL (0.2-1.3); BLOOD UREA NITROGEN 14 mg/dL (7-20); CALCIUM 9.2 mg/dL (8.4-10.2); CARBON DIOXIDE 29 mmol/L (22-30); CHLORIDE 103 mmol/L (98-107); CHOLESTEROL 177.98 mg/dL (0-200); GLUCOSE 128 mg/dL (75-110); POTASSIUM 4.7 mmol/L (3.6-5.0); TOTAL PROTEIN 7.5 g/dL (6.3-8.2); TRIGLYCERIDES 181 mg/dL (<150)
[2019-04-24 11:15] LABS: DIRECT LDL 123 mg/dL (<100)
[2019-04-24 11:17] LABS: VLDL CHOLESTEROL 36.2 mg/dL (10-31)
== END ==
LOC: CCC 09:35
DX: Z00.00 Encounter for general adult medical examination without abnormal findings (principal)
CPT/HCPCS: 36415; 80053; 80061; 83036; 84443; 85025

== ENCOUNTER → 2019-07-18 | Outpatient (CLI) | payer OTHER ==
--- NOTE | 2019-07-18 13:23 | WOMENS IMAGING REPORT ---
EXAM DESCRIPTION: SAL VIDAL BILATERAL SCREEN IMAGES COMPLETED DATE/TIME: 07/18/2019 8:14 am REASON FOR STUDY: Z12.31 ENCOUNTER FOR SCREENING MAMMOGRAM FOR MALIGNANT NEOPLASM OF BREAST Z12.31 ENCNTR SCREEN MAMMOGRAM FOR MALIGNANT NEOPLASM OF BREEZY COMPARISON: None. EXAM PARAMETERS: Standard craniocaudal and mediolateral oblique views of each breast recorded using digital acquisition. Read with the assistance of CAD. .[facility] - [employer] Revenue Inspector Version 9.2 LIMITATIONS: None. FINDINGS: No suspicious masses, suspicious calcifications or architectural distortion. No areas of c oncern. IMPRESSION: NEGATIVE MAMMOGRAM. BIRADS 1 BREAST DENSITY: b. There are scattered areas of fibroglandular density. BIRAD: ASSESSMENT: 1 NEGATIVE RECOMMENDATION: ROUTINE SCREENING COMMENT: The patient has been notified of the results by letter per MQSA requirements. Additional no tification policies are in place for contacting patient with suspicious or incomplete findings. Quality ID #225: The [place] [employer] recommends an annual screening mammogram for women aged 40 years or over. This facility utilizes a reminder system to ensure that all patients receive reminder letters, and/or direct phone calls for appointments. This includes reminders for routine scr eening mammograms, diagnostic mammograms, or other Breast Imaging Interventions when appropriate. Th is patient will be placed in the appropriate reminder system. TECHNICAL DOCUMENTATION: FINDING NUMBER: (1) ASSESSMENT: (1) JOB ID: [id number] 2010 [employer]- All Rights Reserved Reading location - IP/workstation name: [email or web address]
== END ==
LOC: WI 08:01
PROVIDERS: ATTEND Family Medicine
DX: Z12.31 Encounter for screening mammogram for malignant neoplasm of breast (principal)
CPT/HCPCS: 77067

== ENCOUNTER → 2019-09-03 | Outpatient (CLI) | payer OTHER ==
[2019-09-03 09:57] LABS: ABSOLUTE BASOPHILS # (AUTO) 0.1 10^3/uL (0.0-0.2); ABSOLUTE EOSINOPHILS # (AUTO) 0.3 10^3/uL (0.0-0.6); ABSOLUTE LYMPHOCYTES (AUTO) 2.2 10^3/uL (0.5-4.7); ABSOLUTE MONOCYTES (AUTO) 0.7 10^3/uL (0.1-1.4); ABSOLUTE NEUT (AUTO) 7.4 10^3/uL (1.7-8.2); BASOPHILS % (AUTO) 0.7 % (0-2); EOSINOPHILS % (AUTO) 2.7 % (0-6); HEMATOCRIT 41.6 % (36.0-47.0); HEMOGLOBIN 14.4 g/dL (12.0-15.5); LYMPHOCYTES % (AUTO) 20.7 % (13-45); MEAN CORPUSCULAR HEMOGLOBIN 28.8 pg (27.0-33.4); MEAN CORPUSCULAR HGB CONC 34.6 g/dL (32.0-36.0); MEAN CORPUSCULAR VOLUME 83 fl (80-97); MONOCYTES % (AUTO) 6.5 % (3-13); PLATELET COUNT 199 10^3/uL (150-450); RED CELL DISTRIBUTION WIDTH 14.3 % (11.5-14.0); SEGMENTED NEUTROPHILS % (AUTO) 69.4 % (42-78); TOTAL CELLS COUNTED % (AUTO) 100 %; WHITE BLOOD COUNT 10.7 10^3/uL (4.0-10.5)
[2019-09-03 10:22] LABS: ALBUMIN 4.2 g/dL (3.5-5.0); ALKALINE PHOSPHATASE 72 U/L (38-126); ANION GAP 6 (5-19); ASPARTATE AMINO TRANSFERASE 42 U/L (14-36); BILIRUBIN,DIRECT 0.1 mg/dL (0.0-0.4); BILIRUBIN,TOTAL 0.5 mg/dL (0.2-1.3); BLOOD UREA NITROGEN 13 mg/dL (7-20); CARBON DIOXIDE 29 mmol/L (22-30); CHLORIDE 105 mmol/L (98-107); CHOLESTEROL 192.41 mg/dL (0-200); GLUCOSE 157 mg/dL (75-110); POTASSIUM 4.6 mmol/L (3.6-5.0); TOTAL PROTEIN 7.3 g/dL (6.3-8.2); TRIGLYCERIDES 153 mg/dL (<150)
[2019-09-03 10:33] LABS: DIRECT LDL 138 mg/dL (<100); VLDL CHOLESTEROL 30.6 mg/dL (10-31)
== END ==
LOC: CCC 09:18
PROVIDERS: ATTEND Family Medicine
DX: Z00.00 Encounter for general adult medical examination without abnormal findings (principal)
CPT/HCPCS: 36415; 80053; 80061; 83036; 84443; 85025

== ENCOUNTER → 2019-12-27 | Outpatient (CLI) | payer OTHER | LOC: RT 11:16 | DX: J44.9 Chronic obstructive pulmonary disease, unspecified (principal); E11.40 Type 2 diabetes mellitus with diabetic neuropathy, unspecified | CPT/HCPCS: 94761 ==